=== PATIENT | female | born 1990 | race Caucasian/White ===

== ENCOUNTER 2018-10-29 19:22 | Emergency (ER) | payer SELFPAY ==
[2018-10-29] MEDS ORDERED: CLINDAMYCIN 150 MG CAPSULE PO STA (19:38)
[2018-10-29] MEDS ORDERED: BUFFERED LIDOCAINE 10 ML SYRINGE SUBQ STA (19:38)
--- NOTE | 2018-10-29 19:42 | ED Physician Documentation ---
PD HPI WOUND RECHECK - Stated complaint Stated Complaint: FACIAL PX - Chief complaint Chief Complaint: Wound - Histroy obtained from History obtained from: Patient - History of Present Illness Location: Face (She had what she thought was a pimple on the left side of the chin that slowly grew over a week and over the last 2 days has become increasingly painful and she has had some chills. She tried to drain it last night with a needle but really did not get much out.) Review of Systems Ten Systems: 10 systems reviewed and negative Constitutional: reports: Chills. denies: Fever Cardiac: denies: Chest pain / pressure, Palpitations Respiratory: denies: Dyspnea, Cough PD PAST MEDICAL HISTORY - Past Medical History Past Medical History: No - Past Surgical History General: Cholecystectomy HEENT: Tonsil/Adenoidectomy - Present Medications Home Medications: Ambulatory Orders Medication Instructions Recorded Confirmed Clindamycin HCl [Clindamycin 300MG 300 mg PO Q6H #40 capsule 10/29/18 CAP] Hydrocodone/Acetaminophen 1 - 2 each PO Q6H PRN #7 tablet 10/29/18 [Hydrocodon-Acetaminophen 5-325] - Allergies Allergies/Adverse Reactions: Allergies Allergy/AdvReac Type Severity Reaction Status Date / Time Penicillins Allergy Unknown Verified 10/29/18 19:29 - Social History Does the pt smoke?: Yes Smoking Status: Current every day smoker Does the pt drink ETOH?: No Does the pt have substance abuse?: No - Immunizations Immunizations are current?: Yes PD ED PE NORMAL - Vitals Vital signs reviewed: Yes - General General: Alert and oriented X 3, No acute distress - HEENT HEENT: Other (Just to the left of the midline on the chin there is a pointed abscess that spreads across the midline with mild overlying cellulitis) - Neck Neck: Supple, no meningeal sign, No bony TTP - Derm Derm: No rash - Neuro Neuro: Alert and oriented X 3, Normal speech Results - Vitals Vitals: Vital Signs - 24 hr 10/29/18 19:25 Temperature 36.2 C L Heart Rate 134 H Respiratory 18 Rate Blood Pressure 147/99 H O2 Saturation 100 Oxygen O2 Source Room air Procedures - Abscess I&D (location) Chin Preparation: Chlorhexadine, Lidocaine 1% (buffered) Incision: Incised with scalpel, Purulent drainage, Loculations broken, Packed (with 1/4 inch packing), Culture obtained Other: Pt tolerated well, Dressing applied, Antibiotic prescribed Departure - Departure Disposition: 01 Home, Self Care Clinical Impression: Abscess Condition: Good Record reviewed to determine appropriate education?: Yes Instructions: ED Abscess IandD Prescriptions: Clindamycin HCl [Clindamycin 300MG CAP] 300 mg PO Q6H #40 capsule Hydrocodone/Acetaminophen [Hydrocodon-Acetaminophen 5-325] 1 - 2 each PO Q6H PRN #7 tablet PRN Reason: pain Comments: We are performing a wound culture, the results should be done in 48-72 hours. If antibiotic change is necessary we will call you. Return if worse in the meantime, especially if you develop increased pain, fevers, cannot keep down the medication. Otherwise follow-up with your physician in approximately 2-3 days. Your blood pressure was elevated today on check into the emergency department. This does not mean that you have hypertension, it is a common phenomenon to come to the emergency department and have elevated blood pressure. I recommend that you see your primary care physician within the week to have it rechecked when you are feeling better.
[2018-10-29] MEDS ORDERED: HYDROcod/ACET 5/325 Prepack 4 PO STA (20:02)
[2018-10-29 20:30] VITALS: BP 140/106
== END 2018-10-29 20:30 | disposition home or self-care (01) ==
LOC: ED 19:22
DX: L02.01 Cutaneous abscess of face (principal); L03.211 Cellulitis of face; F17.200 Nicotine dependence, unspecified, uncomplicated; R03.0 Elevated blood-pressure reading, without diagnosis of hypertension
CPT/HCPCS: 10060; 87070; 87205; 99283; A9270; 87181

== ENCOUNTER 2018-12-16 02:52 | Outpatient (CLI) | payer MEDICAID | END 2018-12-16 02:53 | disposition critical access hospital (66) | LOC: EMS 02:52 | PROVIDERS: ATTEND Surgery | DX: R10.9 Unspecified abdominal pain (principal) ==

== ENCOUNTER 2018-12-16 03:11 | Emergency (ER) | payer MEDICAID ==
[2018-12-16] MEDS ORDERED: KETOROLAC 30 MG/ML VIAL IVP STA (03:38)
--- NOTE | 2018-12-16 03:40 | ED Physician Documentation ---
PD HPI ABD PAIN - Stated complaint Stated Complaint: ABD PAIN WITH FEVER, CHILLS - Chief complaint Chief Complaint: Back Pain - History obtained from History obtained from: Patient, EMS - History of Present Illness Timing - onset: How many days ago (3) Timing - duration: Days (3) Timing - details: Gradual onset, Still present Quality: Aching, Sharp, Pain Location: RUQ Radiation: Right flank Improved by: Laying still Worsened by: Position, Palpation Associated symptoms: Fever, Nausea. No: Vomiting, Dysuria Similar symptoms before: Diagnosis (pyelo) Recently seen: Not recently seen - Additional information Additional information: 28-year-old female reports that she has been sick for about 3 days with pain in her right side and she has not had urinary symptoms but she feels that this is similar pain to what she is had previously with a kidney infection. She has had a fever associated with this and some nausea but no vomiting. She has been able to keep food and fluids down. [facility] [place] [facility] [place] [facility] 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 Review of Systems Constitutional: reports: Fever, Chills, Myalgias, Fatigue Eyes: denies: Decreased vision Ears: denies: Ear pain Nose: denies: Rhinorrhea / runny nose, Congestion Throat: denies: Sore throat Cardiac: denies: Chest pain / pressure, Palpitations Respiratory: denies: Dyspnea, Cough GI: reports: Abdominal Pain, Nausea. denies: Constipation, Diarrhea : denies: Dysuria, Frequency Skin: denies: Rash Musculoskeletal: reports: Back pain. denies: Neck pain, Extremity pain Neurologic: denies: Generalized weakness, Focal weakness, Numbness PD PAST MEDICAL HISTORY - Past Surgical History General: Cholecystectomy HEENT: Tonsil/Adenoidectomy - Present Medications Home Medications: Ambulatory Orders Medication Instructions Recorded Confirmed Clindamycin HCl [Clindamycin 300MG 300 mg PO Q6H #40 capsule 10/29/18 CAP] Hydrocodone/Acetaminophen 1 - 2 each PO Q6H PRN #7 tablet 10/29/18 [Hydrocodon-Acetaminophen 5-325] Hydrocodone/Acetaminophen 1 - 2 each PO Q6H PRN #14 tablet 12/16/18 [Hydrocodon-Acetaminophen 5-325] Sulfamethoxazole/Trimethoprim 1 each PO BID #14 tablet 12/16/18 [Sulfamethoxazole-Tmp Ds Tablet] - Allergies Allergies/Adverse Reactions: Allergies Allergy/AdvReac Type Severity Reaction Status Date / Time Penicillins Allergy Unknown Verified 10/29/18 19:29 - Social History Does the pt smoke?: Yes Smoking Status: Current every day smoker Does the pt drink ETOH?: No Does the pt have substance abuse?: No - Immunizations Immunizations are current?: Yes PD ED PE NORMAL - Vitals Vital signs reviewed: Yes (febrile and tachycardic ) - General General: Alert and oriented X 3, No acute distress, Well developed/nourished - HEENT HEENT: Atraumatic, PERRL, EOMI - Neck Neck: Supple, no meningeal sign, No bony TTP - Cardiac Cardiac: RRR, No murmur - Respiratory Respiratory: No respiratory distress, Clear bilaterally - Abdomen Abdomen: Soft, Other (RUQ tenderness to bimanual palpation of the right kidney) - Back Back: No spinal TTP, Other (right CVA tenderness ) - Derm Derm: Normal color, Warm and dry, No rash - Extremities Extremities: No deformity, No edema - Neuro Neuro: Alert and oriented X 3, supervisor pumping station 2-12 intact, No motor deficit, No sensory deficit, Normal speech Eye Opening: Spontaneous Motor: Obeys Commands Verbal: Oriented GCS Score: 15 - Psych Psych: Normal mood, Normal affect Results - Vitals Vitals: Vital Signs - 24 hr 12/16/18 03:14 Temperature 38.1 C H Heart Rate 137 H Respiratory 18 Rate Blood Pressure 113/76 O2 Saturation 98 Oxygen O2 Source Room air - Labs Labs: Laboratory Tests 12/16/18 12/16/18 12/16/18 03:30 03:30 03:30 Urine Color YELLOW Urine Clarity SL. CLOUDY Urine pH 6.5 Ur Specific [place] 1.020 1.020 Urine Protein 30 H Urine Glucose (UA) NEGATIVE Urine Ketones TRACE Urine Occult Blood TRACE-INTA Urine Nitrite POSITIVE H Urine Bilirubin NEGATIVE Urine Urobilinogen 0.2 (NORMAL) Ur Leukocyte Esterase TRACE H Urine RBC 11-25 H Urine WBC >25 H Ur Squamous Epith Cells MANY Squamous H Urine Bacteria Many H Ur Microscopic Review INDICATED Urine Culture Comments NOT INDICATED Urine HCG, Qual NEGATIVE Urine Opiates Screen NEGATIVE Ur Oxycodone Screen NEGATIVE Urine Methadone Screen NEGATIVE Ur Propoxyphene Screen NEGATIVE Ur Barbiturates Screen NEGATIVE Ur Tricyclics Screen NEGATIVE Ur Phencyclidine Scrn NEGATIVE Ur Amphetamine Screen POSITIVE H U Methamphetamines Scrn POSITIVE H U Benzodiazepines Scrn NEGATIVE Urine Cocaine Screen NEGATIVE U Cannabinoids Screen NEGATIVE Procedures - Bedside sono Bedside sono by EMP: With use of bedside ultrasound the right kidney is imaged there is no evidence of hydronephrosis the kidney is sonographically specifically tender. - IVC sono (time) 0330 Bedside IVC sono: IVC measures (cm) (1.54), Euvolemia PD MEDICAL DECISION MAKING - ED course Complexity details: reviewed results, re-evaluated patient, considered differential, d/w patient ED course: 28-year-old female with 3 days of right flank pain and nausea has evidence of infection by microscopic analysis of the urine and she has flank pain and tenderness to the right kidney on sonographic palpation. She is diagnosed with pyelonephritis she is administered Toradol 30 mg intravenously and Rocephin 1 g intravenously. She is not dehydrated. She is administered a liter of saline as well. Departure - Departure Disposition: 01 Home, Self Care Clinical Impression: Pyelonephritis Condition: Stable Instructions: ED Kidney Infec Female Follow-Up: [facility] [Provider Group] Prescriptions: Hydrocodone/Acetaminophen [Hydrocodon-Acetaminophen 5-325] 1 - 2 each PO Q6H PRN #14 tablet PRN Reason: pain Sulfamethoxazole/Trimethoprim [Sulfamethoxazole-Tmp Ds Tablet] 1 each PO BID #14 tablet
[2018-12-16 03:49] LABS: MUDS CUTOFF CONCENTRATIONS CUTOFF CONC BELOW:
[2018-12-16 03:58] LABS: BILIRUBIN,URINE NEGATIVE (NEGATIVE); GLUCOSE, URINE (UA) NEGATIVE (NEGATIVE); KETONES,URINE (UA) TRACE mg/dL (NEGATIVE); LEUKOCYTE ESTERASE, URINE TRACE (NEGATIVE); NITRITE,URINE POSITIVE (NEGATIVE); OCCULT BLOOD,URINE TRACE-INTA (NEGATIVE); PH,URINE 6.5 PH (5.0-7.5); PROTEIN,URINE 30 mg/dL (NEGATIVE); UROBILINOGEN,URINE 0.2 (NORMAL) E.U./dL (NORMAL)
[2018-12-16 04:14] LABS: BACTERIA,URINE Many /HPF (None Seen); CLARITY,URINE SL. CLOUDY (CLEAR); SQUAMOUS EPITHELIAL CELL,UR MANY Squamous (<= Few)
[2018-12-16 04:15] LABS: AMPHETAMINE SCREEN,URINE POSITIVE (NEGATIVE); BENZODIAZEPINES SCREEN, URINE NEGATIVE (NEGATIVE); COCAINE SCREEN URINE NEGATIVE (NEGATIVE); METHADONE SCREEN, URINE NEGATIVE (NEGATIVE); METHAMPHETAMINES SCREEN, URINE POSITIVE (NEGATIVE); OPIATE SCREEN, URINE NEGATIVE (NEGATIVE); OXYCODONE SCREEN, URINE NEGATIVE (NEGATIVE); PROPOXYPHENE SCREEN, URINE NEGATIVE (NEGATIVE); TRICYCLIC ANTIDEPRESSANT,URINE NEGATIVE (NEGATIVE)
[2018-12-16 04:16] LABS: HCG UR QUAL NEGATIVE
[2018-12-16] MEDS ORDERED: cefTRIAXone 1 GM in SODIUM CHLORIDE 0.9% MINIBAG 100 ML IV STA (04:19)
[2018-12-16] MEDS ORDERED: SODIUM CHLORIDE 0.9% 1,000 ML IV ONE (04:21)
[2018-12-16 05:43] VITALS: BP 109/62
== END 2018-12-16 05:44 | disposition home or self-care (01) ==
LOC: EDUNIT# → ED 03:11
DX: N12 Tubulo-interstitial nephritis, not specified as acute or chronic (principal); F17.200 Nicotine dependence, unspecified, uncomplicated
CPT/HCPCS: 80306; 81001; 81003; 81025; 87086; 96365; 96375; 99283

== ENCOUNTER 2020-06-03 00:16 | Inpatient (IN) | payer MEDICAID ==
[2020-06-03 01:04] LABS: BASOPHILS # (AUTO) 0.1 10^3/uL (0.0-0.1); BASOPHILS % (AUTO) 0.3 %; EOSINOPHILS # (AUTO) 0.1 10^3/uL (0.0-0.7); EOSINOPHILS % (AUTO) 0.8 %; LYMPHOCYTES # (AUTO) 3.3 10^3/uL (1.5-3.5); LYMPHOCYTES % (AUTO) 21.3 %; MEAN CORPUSCULAR HEMOGLOBIN 26.2 pg (27.0-31.0); MEAN CORPUSCULAR HGB CONC 32.3 g/dL (32.0-36.0); MEAN CORPUSCULAR VOLUME 81.2 fL (81.0-99.0); MEAN PLATELET VOLUME 11.2 fL (7.9-10.8); MONOCYTES # (AUTO) 1.1 10^3/uL (0.0-1.0); MONOCYTES % (AUTO) 7.4 %; NEUTROPHILS # (AUTO) 10.6 10^3/uL (1.5-6.6); PLT - PLATELET COUNT 376 10^3/uL (130-450); RED CELL DISTRIBUTION WIDTH 15.6 % (12.0-15.0); WHITE BLOOD COUNT 15.3 x10^3/uL (4.8-10.8)
[2020-06-03] MEDS ORDERED: METHYLERGONOVINE 0.2 MG/ML VIAL IM PRN (01:05)
[2020-06-03] MEDS ORDERED: LIDOCAINE-MPF 1% 30 ML VIAL ID PRN (01:05)
[2020-06-03] MEDS ORDERED: OXYTOCIN/SODIUM CHLORIDE 500 ML IV PRN (01:05)
[2020-06-03] MEDS ORDERED: TRANEXAMIC ACID 1,000 MG in SODIUM CHLORIDE 0.9% 100ML 100 ML IV PRN (01:05)
[2020-06-03] MEDS ORDERED: SODIUM CHLORIDE FLUSH 0.9% 10 ML SYRINGE IVP PRN (01:05)
[2020-06-03] MEDS ORDERED: OXYTOCIN 10 UNIT/ML VIAL IM PRN (01:05)
[2020-06-03] MEDS ORDERED: miSOPROStoL 200 MCG TABLET BC PRN (01:05)
[2020-06-03] MEDS ORDERED: CARBOPROST TROMETHAMINE 250 MCG/ML AMP IM PRN (01:05)
[2020-06-03] MEDS ORDERED: ONDANSETRON 4 MG/2 ML VIAL IVP PRN (01:41)
[2020-06-03] MEDS ORDERED: DOCUSATE SODIUM 100 MG CAPSULE PO PRN (01:48)
--- NOTE | 2020-06-03 01:54 | HISTORY & PHYSICAL EXAMINATION ---
Admit History - Visit Reason Visit Reason: Contractions - : 5 Parity: 4 Care: positive: Other Risk/History: positive: induced HTN, Other (methamphetamine use) Smoking Status: Current every day smoker - Mother's Labs Mother's Blood Type: positive: Unknown Mother's RH: positive: Unknown Rubella Status: positive: Unknown - Other Maternal History Other Maternal History: 30 yo reported to be at 37+4 wga presents in active labor. Patient reports that she has gotten her care on [facility]. Has not had care in more than a month. Presented with painful contractions with ini tial SVE was 9/C/0 station. Elevated blood pressures with borderline severe range. Hx of pre-eclampsia in prior . No BAY/vision change/RUQ pain. Patient admits to recent methamphetamine use. No labs are available. GBS unknown. Denies hx of genital herpes. Reports hx of hemorrhage/hematoma after last delivery. records are not available. Meds/Allgy - Home Medications Home Medications: Ambulatory Orders Medication Instructions Recorded Confirmed Clindamycin HCl [Clindamycin 300MG 300 mg PO Q6H #40 capsule 10/29/18 CAP] Hydrocodone/Acetaminophen 1 - 2 each PO Q6H PRN #7 tablet 10/29/18 [Hydrocodon-Acetaminophen 5-325] Hydrocodone/Acetaminophen 1 - 2 each PO Q6H PRN #14 tablet 12/16/18 [Hydrocodon-Acetaminophen 5-325] Sulfamethoxazole/Trimethoprim 1 each PO BID #14 tablet 12/16/18 [Sulfamethoxazole-Tmp Ds Tablet] - Allergies Allergies/Adverse Reactions: Allergies Allergy/AdvReac Type Severity Reaction Status Date / Time Penicillins Allergy Unknown Verified 10/29/18 19:29 Review of Systems - Other Findings Other Findings: As per HPI, otherwise remaining systems are negative. Physical - Abdominal Exam Vital Signs: Temp Pulse Resp BP Pulse Ox 97.9 F 105 H 22 147/96 H 98 06/03/20 00:45 06/03/20 01:03 06/03/20 01:03 06/03/20 01:03 06/03/20 00:45 Contraction Frequency (min/apart): Unable to get patient on monitor. Appears Q2 min Contraction Intensity: positive: Strong - Monitoring Heart Rate Baseline: 155 mild/mod kenneth 10x10 accels no decels Strip Review: positive: Category I - Presentation Presentation: positive: Vertex - Vaginal Exam Membranes: positive: Membranes ruptured Dilation (in cm): 9 Effacement (%): C Station: positive: 0 Cervical Position: positive: Midposition - Other Notes Labor Progress Note/Additional Text: Patient ruptures shortly after presentation. Thick meconium. Precipitous delivery GEN: Moderate distress, somewhat disheveled HEENT NCAT RESP: nl effort CV: mildly tachycardic ABD: gravid, soft between contractions PELVIC: gaping introitus c/w prior unrepaired laceration EXT: WWP, no LE edema PSYCH: mildly agitated NEURO: A&O Plan for Labor - Plan For Labor Plan for Labor: 30 yo at 37+4 wga presents in late state labor No records available No care for the last month Denies HSV GBS unknown Admits methamphetamine exposure SROM with thick meconium Precipitous delivery In-patient care
[2020-06-03] MEDS ORDERED: LACTATED RINGERS 1,000 ML IV SCH ×2 (02:00)
--- NOTE | 2020-06-03 02:17 | DELIVERY NOTE ---
Delivery Note - Labor Labor: positive: Spontaneous - Delivery Method Delivery Method: positive: Spontaneous vaginal delivery - Presentation Presentation: positive: Vertex - Nuchal Cord Nuchal Cord: positive: None - Amniotic Fluid Description Amniotic Fluid Description: positive: Thick meconium - Laceration Laceration: positive: None - Delivery Outcome Delivery Outcome: positive: Livebirth - : positive: Placed in direct skin contact with mother, Other ( in respiratory distress. Went to [facility] for assessment by Institutional Commodity Analyst. Delee'd and PPV) - Cord Cord: positive: 3 vessels - Placenta Placenta: positive: Intact, Spontaneous - Estimated Blood Loss Estimated Blood Loss (in cc): 200 - Post Delivery Events Post Delivery Events: positive: No post delivery events - Delivery Comments (Free Text/Narrative) Delivery Comments (Free Text/Narrative): STAGE I: Patient is a 30 yo at 37+4 wga, per patient report, who presented in active labor. No records available. No care for the last month. Admits to recent methamphetamine use. Initial SVE was 9/C/0 station. Spontaneously ruptured membranes notable for passage of thick meconium shortly after presentation. Had less than 20 mins of monitoring. No epidural . No antibiotic prophylaxis. STAGE II: Patient started pushing involuntarily shortly after membrane rupture. Head was delivered and then patient became disorganized in pushing due to discomfort/panic. She was verbally calmed and was then able to deliver the shoulders without shoulder dystocia maneuvers. Delivered a viable female with Apgars of 8/8 and weight 3380g at 1:11 am. was delivered to mothers chest. No nuchal cord. She was then brought to the [facility] for assessment with the electrician's assistant due to respiratory distress. Infant is in the process of transfer to [facility] for NICU assistance. STAGE III: Placenta delivered spontaneously shortly after delivery the infant. It was examined and found to be intact. Perineum was examined and found to be intact, although laxity/structure of the introitus and perineal body had the appearance of a laceration that may have gone unrepaired in a prior delivery. EBL was 200 mL. Good hemostasis was noted. Placenta to be sent to pathology.
[2020-06-03] MEDS: ACETAMINOPHEN 500 MG TABLET PO SCH ×3 (02:20→20:02)
[2020-06-03 02:29] LABS: BASOPHILS # (AUTO) 0.1 10^3/uL (0.0-0.1); BASOPHILS % (AUTO) 0.4 %; EOSINOPHILS # (AUTO) 0.1 10^3/uL (0.0-0.7); EOSINOPHILS % (AUTO) 0.7 %; HGB - HEMOGLOBIN 10.6 g/dL (12.0-16.0); LYMPHOCYTES # (AUTO) 2.5 10^3/uL (1.5-3.5); MEAN CORPUSCULAR HEMOGLOBIN 25.7 pg (27.0-31.0); MEAN CORPUSCULAR HGB CONC 31.1 g/dL (32.0-36.0); MEAN CORPUSCULAR VOLUME 82.8 fL (81.0-99.0); MEAN PLATELET VOLUME 10.7 fL (7.9-10.8); MONOCYTES # (AUTO) 0.9 10^3/uL (0.0-1.0); MONOCYTES % (AUTO) 6.4 %; NEUTROPHILS # (AUTO) 10.3 10^3/uL (1.5-6.6); NEUTROPHILS % (AUTO) 73.4 %; PLT - PLATELET COUNT 342 10^3/uL (130-450); RED BLOOD COUNT 4.12 10^6/uL (4.20-5.40); RED CELL DISTRIBUTION WIDTH 15.5 % (12.0-15.0)
[2020-06-03] MEDS ORDERED: DEXTROSE 10% 250 ML IV ONE (02:39)
[2020-06-03 02:43] LABS: CREATININE 0.6 mg/dL (0.4-1.0)
[2020-06-03] MEDS ORDERED: SODIUM CHLORIDE FLUSH 0.9% 10 ML SYRINGE IVP SCH (09:00)
[2020-06-03] MEDS: IBUPROFEN 600 MG TABLET PO SCH ×3 (11:37→23:26)
[2020-06-03 15:35] LABS: MUDS CUTOFF CONCENTRATIONS CUTOFF CONC BELOW:
[2020-06-03 15:51] LABS: AMPHETAMINE SCREEN,URINE POSITIVE (NEGATIVE); BENZODIAZEPINES SCREEN, URINE NEGATIVE (NEGATIVE); COCAINE SCREEN URINE NEGATIVE (NEGATIVE); METHADONE SCREEN, URINE NEGATIVE (NEGATIVE); METHAMPHETAMINES SCREEN, URINE POSITIVE (NEGATIVE); OPIATE SCREEN, URINE NEGATIVE (NEGATIVE); OXYCODONE SCREEN, URINE NEGATIVE (NEGATIVE); PROPOXYPHENE SCREEN, URINE NEGATIVE (NEGATIVE); TRICYCLIC ANTIDEPRESSANT,URINE NEGATIVE (NEGATIVE)
[2020-06-03 22:26] LABS: TRICHOMONAS VAGINALIS DNA POSITIVE (NEGATIVE)
[2020-06-04] MEDS: ACETAMINOPHEN 500 MG TABLET PO SCH (04:03)
[2020-06-04] MEDS: IBUPROFEN 600 MG TABLET PO SCH (05:35)
[2020-06-04 08:03] VITALS: BP 141/85
--- NOTE | 2020-06-04 08:07 | DISCHARGE SUMMARY ---
Discharge Summary Admit Date: 06/03/20 Discharge Date: 06/04/20 Discharging Provider: Ana Code Status: Attempt Resuscitation Condition at Discharge: Good Discharge Disposition: 01 Home, Self Care Discharge Facility Name: [facility] - DIAGNOSES Admission Diagnoses: Labor at term/unknown gestation Methamphetamine use Scant/absent care Discharge Diagnoses with Status of Each Condition: Same and delivery of term gestation - HPI History of Present Illness: 30 yo reported to be at 37+4 wga presents in active labor. Patient initially reported that she has gotten her care in [facility]/[place]. Has not had care in more than a month. Presented with painful contractions with initial SVE was 9/C/0 station. Elevated blood pressures with borderline severe range. Hx of pre-eclampsia in prior . No BAY/vision change/RUQ pain. Patient admitted to recent methamphetamine use. No labs are available. GBS unknown. Further into admission, patient reports care was not well established. - HOSPITAL COURSE Hospital Course: STAGE I: Patient is a 30 yo at 37+4 wga, per patient report, who presented in active labor. No records available. No care for the last month. Admits to recent methamphetamine use. Initial SVE was 9/C/0 station. Spontaneously ruptured membranes notable for passage of thick meconium shortly after presentation. Had less than 20 mins of monitoring. No epidural . No antibiotic prophylaxis. STAGE II: Patient started pushing involuntarily shortly after membrane rupture. Head was delivered and then patient became disorganized in pushing due to d iscomfort/panic. She was verbally calmed and was then able to deliver the shoulders without shoulder dystocia maneuvers. Delivered a viable female with Apgars of 8/8 and weight 3380g at 1:11 am. Infant was delivered to mothers chest. No nuchal cord. She was then brought to the [facility] for assessment with the cotton expert due to respiratory distress. Infant is in the process of transfer to [facility] for NICU assistance. STAGE III: Placenta delivered spontaneously shortly after delivery the infant. It was examined and found to be intact. Perineum was examined and found to be intact, although laxity/structure of the introitus and perineal body had the appearance of a laceration that may have gone unrepaired in a prior delivery. EBL was 200 mL. Good hemostasis was noted. Placenta sent to pathology. Infant had been transferred to [facility] for NICU support immediately . course was uncomplicated. Patient was discharged on PPD#1. O pos/Rub imm - ALLERGIES Allergies/Adverse Reactions: Allergies Allergy/AdvReac Type Severity Reaction Status Date / Time Penicillins Allergy Unknown Verified 10/29/18 19:29 - MEDICATIONS Home Medications: Ambulatory Orders Medication Instructions Recorded Confirmed Clindamycin HCl [Clindamycin 300MG 300 mg PO Q6H #40 capsule 10/29/18 CAP] Hydrocodone/Acetaminophen 1 - 2 each PO Q6H PRN #7 tablet 10/29/18 [Hydrocodon-Acetaminophen 5-325] Hydrocodone/Acetaminophen 1 - 2 each PO Q6H PRN #14 tablet 12/16/18 [Hydrocodon-Acetaminophen 5-325] Sulfamethoxazole/Trimethoprim 1 each PO BID #14 tablet 12/16/18 [Sulfamethoxazole-Tmp Ds Tablet] - PHYSICAL EXAM AT DISCHARGE General Appearance: positive: No acute distress Respiratory: positive: No respiratory distress, Breath sounds nml Cardiovascular: positive: Regular rate & rhythm Abdomen: positive: Non-tender, Other (FF below umbi) Back: positive: Nml inspection Skin: positive: Color nml Extremities: positive: Non-tender Neurologic/Psychiatric: positive: Oriented x3 - LABS Result Diagrams: 06/03/20 02:20 06/03/20 02:20 - FOLLOW UP Follow Up: 1 week - TIME SPENT Time Spent in Discharge (Minutes): 30
--- NOTE | 2020-06-04 11:18 | Labor Flowsheet ---
Labor Flowsheet Datetime Report Generated by CPN: 06/04/2020 11:17 Datetime: 06/03/2020 04:00 Pulse: 100 LaborFlag: Labor Datetime: 06/03/2020 03:57 VITAL SIGNS NBP Sys/Marifer/Mean (mmHg): 142 : 84 : 99 Datetime: 06/03/2020 01:10 VAGINAL EXAM Membrane Status: Ruptured Membranes Rupture Method: Spontaneous Amniotic Fluid Color: Heavy Meconium Amniotic Fluid Amount: Moderate Amniotic Fluid Odor: Normal STAGE 2 Pushing Position: Pushing with Contractions Pushing Progress: Pushing Effectively with Contractions Stage 2 Comments: pt losing control due to rapid descent, intense coaching needed by MD Datetime: 06/03/2020 01:02 FHR Baseline Rate : 145 Variability: Moderate 6-25 bpm Accelerations: 15X15 Decelerations: None Datetime: 06/03/2020 00:57 PATIENT CARE Strip Reviewed by: Dr. McSorley COMMUNICATION Communication: Provider at Bedside Datetime: 06/03/2020 00:45 Respirations: 20 SpO2 (%): 99 Datetime: 06/03/2020 00:44 Stage of : Labor UTERINE ACTIVITY Monitor Mode: External Frequency (min): 2-3 Quality: Strong Duration (sec): 60-90 Pattern: Normal: <= 5 Contractions in 10 Minutes Resting Tone (Palpate): Relaxed Contraction Comments: pt being prepped to deliver, sensor not placed ASSESSMENT A Monitor Mode: External US Category: Category I
[2020-06-04 13:19] LABS: HEPATITIS B SURFACE ANTIGEN NON-REACTIVE (NON-REACTIVE)
[2020-06-04 15:03] LABS: HIV AG/AB 4TH GEN NON-REACTIVE (NON-REACTIVE)
--- NOTE | 2020-06-06 11:07 | PROVIDER PROGRESS NOTE ---
Subjective - Prog Note Date Prog Note Date: 06/04/20 Prog Note Time: 10:30 - Subjective Subjective: Patient is up and ambulating, tolerating po, and voiding. Pain is well managed with pain medications. No agitation. Requesting discharged to be with infant at [facility]. Objective - Vital Signs/Intake & Output Reviewed Vital Signs: Yes Intake & Output: Intake & Output 06/03/20 06/04/20 06/05/20 06/06/20 23:59 23:59 23:59 23:59 Intake Total 700 Output Total 400 Balance 300 - Objective General Appearance: positive: No acute distress Neck: positive: Nml inspection Respiratory: positive: Chest non-tender, Breath sounds nml Cardiovascular: positive: Regular rate & rhythm Abdomen: positive: Non-tender, Other (FF below umbi) Skin: positive: Color nml - Lab Results Fish Bones: 06/03/20 02:20 06/03/20 02:20 Assessment/Plan - Problem List (1) Vaginal delivery Impression: PPD#1: Patient anxious for discharge to be with infant in NICU Pending CPS eval Mildly elevated BP; denies PIH symptoms Will have BPs checked at [facility] Discharge instructions given Will return for follow-up at [facility] or may establish care at [facility] in infant is put in custody of her sister in [place]. Aware that she needs follow-up of BPs. Warning signs reviewed. RH positive and Rub imm
== END 2020-06-04 11:00 | disposition home or self-care (01) | DRG 807 ==
LOC: WFO 00:16 → FBP 00:17 → WFO 00:34 → UNDOADMIN 00:35 → FBP 00:35 → OBS 05:52
PROVIDERS: ADMIT Obstetrics & Gynecology; ATTEND Obstetrics & Gynecology
PROC: 10E0XZZ Delivery of Products of Conception, External Approach (ICD-10-PCS; principal; 2020-06-03)
DX: O13.4 Gestational [pregnancy-induced] hypertension without significant proteinuria, complicating childbirth (principal); Z37.0 Single live birth; O99.324 Drug use complicating childbirth; F15.90 Other stimulant use, unspecified, uncomplicated; O99.334 Smoking (tobacco) complicating childbirth; F17.200 Nicotine dependence, unspecified, uncomplicated; O77.0 Labor and delivery complicated by meconium in amniotic fluid; O62.3 Precipitate labor; Z3A.37 37 weeks gestation of pregnancy; Z87.59 Personal history of other complications of pregnancy, childbirth and the puerperium
CPT/HCPCS: 80306; 82565; 84450; 85025; 86762; 86780; 86900; 86901; 87340; 87389; 87491; 87591; 87661; 99212; 99406; A9270; J3490; J7120

== ENCOUNTER 2021-11-30 04:33 | Emergency (ER) | payer MEDICAID ==
[2021-11-30] MEDS ORDERED: KETOROLAC 30 MG/ML VIAL IM STA (04:56)
[2021-11-30] MEDS ORDERED: ACETAMINOPHEN 325 MG TABLET PO STA (04:56)
--- NOTE | 2021-11-30 04:58 | ED Physician Documentation ---
PD HPI Fall - Stated complaint Stated Complaint: GLF, FACE/NECK PX - History obtained from History obtained from: Patient - History of Present Illness Mechanism of injury: Lost balance Fall distance: From bed (she was getting into a loft-type bed that swings and she fell as mostly into it, landing left face/shoulder initial impact. Has pain in face and left side of neck, also some headache. Left shoulder pain. Came here by friend driving.) Where injury occurred: Home Timing - onset: How many hours ago (1), Today Injury(ies) location: Face (left periorbital and cheek area.), Neck (left anterior), Left Uppper Extremity (shoulder) Associated symptoms: Neck pain. No: LOC, AMS, Weakness, Paresthesias, Nausea / vomiting Worsens with: Movement (of her jaw and facial muscles.), Palpation Contributing factors: No: Anticoagulated, Intoxicated (denies alcohol use, but does endorse meth use last evening.) Similar symptoms before: Has not had sx before Review of Systems Constitutional: denies: Fever, Chills Nose: denies: Rhinorrhea / runny nose, Congestion Throat: denies: Sore throat Cardiac: denies: Chest pain / pressure Respiratory: denies: Cough GI: denies: Abdominal Pain Skin: denies: Abrasion (s), Laceration (s) Musculoskeletal: reports: Neck pain. denies: Back pain Neurologic: reports: Headache, Head injury. denies: Focal weakness, Numbness, Altered mental status PD PAST MEDICAL HISTORY - Past Medical History Cardiovascular: None Respiratory: None Endocrine/Autoimmune: None - Past Surgical History General: Cholecystectomy HEENT: Tonsil/Adenoidectomy - Present Medications Home Medications: Ambulatory Orders Medication Instructions Recorded Confirmed No Known Home Medications 11/30/21 11/30/21 - Allergies Allergies/Adverse Reactions: Allergies Allergy/AdvReac Type Severity Reaction Status Date / Time Penicillins Allergy Unknown Verified 11/30/21 05:02 - Living Situation Living Arrangement: reports: At home - Social History Does the pt smoke?: Yes Smoking Status: Current every day smoker Does the pt drink ETOH?: No Does the pt have substance abuse?: Yes Substance Use and Type: Meth - Immunizations Immunizations are current?: Yes PD ED PE NORMAL - Vitals Vital signs reviewed: Yes - General General: Alert and oriented X 3, Well developed/nourished, Other (appears in pain with frozen vegetables held to left face. Ambulated into triage. ) - HEENT HEENT: PERRL, EOMI, Dentition benign, Other (some soft tissue swelling left cheek and lower eyelid. No pain with eye movement. ) - Neck Neck: Supple, no meningeal sign, No bony TTP (she is tender left side of neck in the SCM muscle area. No noted deformity. ) - Cardiac Cardiac: RRR, No murmur - Respiratory Respiratory: Clear bilaterally, Other (no chestwall tenderness. ) - Abdomen Abdomen: Soft, Non tender - Back Back: No spinal TTP - Derm Derm: Normal color, Warm and dry - Extremities Extremities: No edema - Neuro Neuro: Alert and oriented X 3, No motor deficit, No sensory deficit, Normal speech Results - Vitals Vitals: Vital Signs - 24 hr 11/30/21 11/30/21 11/30/21 04:43 05:08 05:43 Temperature 36.1 C L Heart Rate 103 H 100 99 Respiratory 18 14 18 Rate Blood Pressure 144/97 H 139/86 H 145/95 H O2 Saturation 100 100 99 Oxygen O2 Source Room air - Rads (name of study) head CT Radiology: Prelim report reviewed (no bleed nor fractures), See rad report cervical CT Radiology: Prelim report reviewed (no fractures), See rad report facial CT Radiology: Prelim report reviewed (no fractures. ), See rad report PD MEDICAL DECISION MAKING - ED course Complexity details: reviewed old records, reviewed results (no fractures nor ICH. ), considered differential, d/w patient Departure - Departure Clinical Impression: Fall from height of greater than 3 feet Shoulder contusion Qualifiers: Encounter type: initial encounter Laterality: left Qualified Code(s): S40.012A - Contusion of left shoulder, initial encounter Facial contusion Qualifiers: Encounter type: initial encounter Qualified Code(s): S00.83XA - Contusion of other part of head, initial encounter Acute strain of neck muscle Qualifiers: Encounter type: initial encounter Qualified Code(s): S16.1XXA - Strain of muscle, fascia and tendon at neck level, initial encounter Condition: Stable Record reviewed to determine appropriate education?: Yes Instructions: ED Contusion Face Comments: CT scans of your head face and neck do not show any signs of fractures nor intracranial bleeding. X-ray of your shoulder is normal as well. You will obviously still be sore from the impact of the fall but it should get better over the next couple of days with ice to the area to reduce swelling and use of anti-inflammatories such as ibuprofen or naproxen 3 times daily and add Tylenol if needed. Stay well-hydrated. Recheck if not improved well over the next several days.
[2021-11-30 06:47] VITALS: BP 137/78
--- NOTE | 2021-11-30 07:56 | CT Report ---
PROCEDURE: MAXILLOFACIAL WO INDICATIONS: fall onto face; face/head/neck pain TECHNIQUE: Noncontrast 1.5 mm thick axial images acquired from the mandible through the frontal sinuses, with co hitesh and sagittal reformatting. For radiation dose reduction, the following was used: automated ex posure control, adjustment of mA and/or kV according to patient size. COMPARISON: None. FINDINGS: Image quality: Excellent. Bones and teeth: Orbital evangelista are intact. Sinus evangelista show no fracture or deformity. Nasal bones and septum are intact. Visualized portions of the mandible demonstrate no fractures or subluxation. Zygomatic arches are intact. Pterygoid plates are intact. Visualized portions of the skull base an d auditory canals are intact. Multiple dental caries noted. Sinuses: Mild mucosal thickening noted in the left maxillary sinus. Mastoid air cells are aerated. Soft tissues: Left periorbital facial soft tissue swelling. No enlarged lymph nodes. No soft tissue lacerations or debris. Vascular: Visualized vascular structures appear normal in the absence of contrast. Bony vascular fo ramina and canals are intact. IMPRESSION: No fracture. Reviewed by: Lorena Burch MD, PhD on 11/30/2021 7:55 AM PST Approved by: Lorena Burch MD, PhD on 11/30/2021 7:55 AM PST Station ID: [id number]
--- NOTE | 2021-11-30 07:59 | CT Report ---
PROCEDURE: HEAD WO INDICATIONS: fall onto face; face/head/neck pain TECHNIQUE: Noncontrast 4.5 mm thick angled axial sections acquired from the foramen magnum to the vertex. For r adiation dose reduction, the following was used: automated exposure control, adjustment of mA and/or kV according to patient size. COMPARISON: None. FINDINGS: Image quality: Excellent. CSF spaces: Basal cisterns are patent. No extra-axial fluid collections. Ventricles are normal in size and shape. Brain: No midline shift. No intracranial masses or hemorrhage. Quarles-white matter interface is norm al. Skull and face: Calvarium and visualized facial bones are intact, without suspicious lesions. Sinuses: Visualized sinuses and mastoids are clear. IMPRESSION: No acute intracranial disease process. Reviewed by: Lorena Burch MD, PhD on 11/30/2021 7:57 AM PST Approved by: Lorena Burch MD, PhD on 11/30/2021 7:57 AM [facility] Station ID: [id number]
--- NOTE | 2021-11-30 08:00 | XRAY Report ---
PROCEDURE: Shoulder 3 View LT INDICATIONS: fall to left shoulder/face TECHNIQUE: 3 views of the shoulder were acquired. COMPARISON: None. FINDINGS: Bones: No fractures or dislocations. No suspicious bony lesions. Visualized ribs appear intact. Soft tissues: Tiny 2 mm calcification noted distally lateral margin of the humeral head may be relate d to calcific tendinitis. IMPRESSION: No fracture. No osseous lesion. If there are persistent symptoms or continued clinical concern for pa thology, then repeat plain film radiographs (7-10 days) or advanced imaging (CT, MR, bone scan) shoul d be considered for further evaluation. Reviewed by: Lorena Burch MD, PhD on 11/30/2021 7:59 AM [facility] Approved by: Lorena Burch MD, PhD on 11/30/2021 7:59 AM [facility] Station ID: [id number]
--- NOTE | 2021-11-30 08:04 | CT Report ---
PROCEDURE: CERVICAL SPINE WO INDICATIONS: fall onto face; face/head/neck pain TECHNIQUE: Noncontrast 3 mm thick sections acquired from the skull base to the T4 level. Sagittal and coronal r eformats were then constructed. For radiation dose reduction, the following was used: automated exp osure control, adjustment of mA and/or kV according to patient size. COMPARISON: None. FINDINGS: Image quality: Excellent. Bones: No fractures or dislocations. Visualized superior ribs are intact. Mild mid cervical spine d egenerative disc disease. Mild lower cervical spine facet arthropathy. Soft tissues: Prevertebral soft tissues are normal in thickness. No paravertebral hematomas. No ap ical pneumothoraces. IMPRESSION: No fracture. No acute osseous lesion. If there is continued clinical concern for pathology, then MRI should be considered for further evaluation. Reviewed by: Lorena Burch MD, PhD on 11/30/2021 8:03 AM PST Approved by: Lorena Burch MD, PhD on 11/30/2021 8:03 AM PST Station ID: [id number]
== END 2021-11-30 06:47 | disposition home or self-care (01) ==
LOC: ED 04:33
DX: S40.012A Contusion of left shoulder, initial encounter (principal); S00.83XA Contusion of other part of head, initial encounter; S16.1XXA Strain of muscle, fascia and tendon at neck level, initial encounter; W17.89XA Other fall from one level to another, initial encounter; Y93.89 Activity, other specified; Y92.009 Unspecified place in unspecified non-institutional (private) residence as the place of occurrence of the external cause; F17.200 Nicotine dependence, unspecified, uncomplicated
CPT/HCPCS: 70450; 70486; 72125; 73030; 96372; 99282; 99284; A9270

== ENCOUNTER 2022-08-10 21:12 | Outpatient (CLI) | payer MEDICAID | END 2022-08-10 21:13 | disposition EMS.NT | LOC: EMS 21:12 | DX: R00.0 Tachycardia, unspecified (principal) ==

== ENCOUNTER 2022-08-12 02:52 | Outpatient (CLI) | payer MEDICAID | END 2022-08-12 02:53 | disposition critical access hospital (66) | LOC: EMS 02:52 | DX: R10.11 Right upper quadrant pain (principal) | CPT/HCPCS: A0425; A0429; A0999 ==

== ENCOUNTER 2022-08-12 03:12 | Emergency (ER) | payer MEDICAID ==
--- NOTE | 2022-08-12 03:12 | ED Physician Documentation ---
PD HPI ABD PAIN - Stated complaint Stated Complaint: RT SIDE LIVER PX - History obtained from History obtained from: Patient, EMS - History of Present Illness Timing - onset: How many weeks ago (2-3 weeks) Timing - details: Waxing and waning Pain level now: 5 Quality: Pain Location: RUQ Radiation: Right flank Improved by: Other (no ameliorating factors) Worsened by: Palpation Associated symptoms: Nausea, Vomiting. No: Diarrhea, Constipation, Dysuria Recently seen: Admitted - Additional information Additional information: BIBA. Patient called 911 with c/o abdominal pain, RUQ radiating around right flank to right paralumbar region. She says she has had this pain episodically over past 2-3 weeks. Patient says she was admitted to [facility] 08/01 and was inpatient there until 2 days ago when she left [place]. Patient says there was some abnormality regarding her liver tests but that the cause was unclear. Patient says she was negative for hepatitis B but that a hepatitis C test was pending when she left. Patient admits to using methamphetamines tonight which she smokes. She denies any other drug use, denies IV drug use, denies alcohol use (denies recent alco hol intake and denies h/o heavy/regular alcohol use). Denies excessive tylenol use. Review of Systems Constitutional: denies: Fever, Chills, Sweats Cardiac: reports: Reviewed and negative Respiratory: reports: Reviewed and negative GI: reports: Abdominal Pain, Nausea, Vomiting. denies: Abdominal Swelling, Constipation, Diarrhea, Hematemesis, Bloody / black stool : denies: Dysuria, Frequency Skin: denies: Rash PD PAST MEDICAL HISTORY - Past Medical History Past Medical History: No - Present Medications Home Medications: Ambulatory Orders Medication Instructions Recorded Confirmed No Known Home Medications 08/12/22 08/12/22 - Allergies Allergies/Adverse Reactions: Allergies Allergy/AdvReac Type Severity Reaction Status Date / Time Penicillins Allergy Unknown Verified 08/12/22 03:18 - Living Situation Living Arrangement: reports: Homeless - Social History Does the pt drink ETOH?: No Does the pt have substance abuse?: Yes Substance Use and Type: Meth PD ED PE NORMAL - Vitals Vital signs reviewed: Yes - General General: Alert and oriented X 3, No acute distress, Well developed/nourished, Other (some pressured speech and occasionally tangential but she self-corrects and apologizes for "rambling" (per patient)) - Neck Neck: Supple, no meningeal sign - Cardiac Cardiac: RRR, No murmur - Respiratory Respiratory: No respiratory distress, Clear bilaterally - Abdomen Abdomen: Soft, Non tender - Back Back: No CVA TTP - Extremities Extremities: No edema - Neuro Neuro: Alert and oriented X 3 Eye Opening: Spontaneous Motor: Obeys Commands Verbal: Oriented GCS Score: 15 Results - Vitals Vitals: Vital Signs - 24 hr 08/12/22 03:18 Temperature 36.7 C Heart Rate 99 Respiratory 16 Rate Blood Pressure 118/105 H O2 Saturation 96 Oxygen O2 Source Room air - Labs Labs: Laboratory Tests 08/12/22 08/12/22 03:32 03:32 WBC 14.4 H RBC 4.34 Hgb 11.4 L Hct 35.5 L MCV 81.8 MCH 26.3 L MCHC 32.1 RDW 17.0 H Plt Count 480 H MPV 9.6 Neut # (Auto) 8.4 H Lymph # (Auto) 4.1 H [place] # (Auto) 1.5 H Eos # (Auto) 0.3 Baso # (Auto) 0.1 Absolute Nucleated RBC 0.00 Nucleated RBC % 0.0 Sodium 136 Potassium 3.6 Chloride 101 Carbon Dioxide 24 Anion Gap 11.0 BUN 20 Creatinine 0.7 Estimated GFR (MDRD) 97 Glucose 107 H Calcium 9.1 Total Bilirubin 2.3 H AST 93 H ALT 295 H Alkaline Phosphatase 157 H Total Protein 8.1 Albumin 4.1 Globulin 4.0 Albumin/Globulin Ratio 1.0 Lipase 32 PD MEDICAL DECISION MAKING - ED course Complexity details: reviewed results, re-evaluated patient, considered differential, d/w patient ED course: I explained to patient that I would initiate a work up , starting with blood tests. SPECIALTY THERAPIST contacted [facility] and requested records although I did not receive any records during patient's ED stay. Patient declined pain medication, declined anti-nausea medications. She did not express any disagreement nor dissatisfaction with testing as discussed. I explained that I would reevalulate her once the tests were resulted and hopefully records from [facility] received. Unfortunately, while tests were pending, patient removed her IV, came out to the desk and told the nurse that she had a relative on the way to pick her up and that this person was going to drive patient back down to [facility]. patient left before I was able to reevaluate her. While I did not receive records from [facility], [facility] form reflect two visits on 08/01/22 to [facility] and admission 08/01/22 to [facility]. [facility] also indicates she had another visit to the [facility] ED 08/05/22 but I do not see an indication of admission on that visit. Departure - Departure Disposition: ED [place] Clinical Impression: Abdominal pain Qualifiers: Abdominal location: upper abdomen, unspecified Qualified Code(s): R10.10 - Upper abdominal pain, unspecified Condition: Good Discharge Date/Time: 08/12/22 04:40
[2022-08-12 03:20] VITALS: BP 118/105
[2022-08-12] MEDS ORDERED: SODIUM CHLORIDE 0.9% 1,000 ML IV STA (03:26)
[2022-08-12 03:48] LABS: BASOPHILS # (AUTO) 0.1 10^3/uL (0.0-0.1); BASOPHILS % (AUTO) 0.6 %; EOSINOPHILS # (AUTO) 0.3 10^3/uL (0.0-0.7); EOSINOPHILS % (AUTO) 1.7 %; HCT - HEMATOCRIT 35.5 % (37.0-47.0); HGB - HEMOGLOBIN 11.4 g/dL (12.0-16.0); LYMPHOCYTES # (AUTO) 4.1 10^3/uL (1.5-3.5); LYMPHOCYTES % (AUTO) 28.8 %; MEAN CORPUSCULAR HEMOGLOBIN 26.3 pg (27.0-31.0); MEAN CORPUSCULAR HGB CONC 32.1 g/dL (32.0-36.0); MEAN CORPUSCULAR VOLUME 81.8 fL (81.0-99.0); MEAN PLATELET VOLUME 9.6 fL (7.9-10.8); MONOCYTES # (AUTO) 1.5 10^3/uL (0.0-1.0); MONOCYTES % (AUTO) 10.2 %; NEUTROPHILS # (AUTO) 8.4 10^3/uL (1.5-6.6); NEUTROPHILS % (AUTO) 58.2 %; PLT - PLATELET COUNT 480 10^3/uL (130-450); RED BLOOD COUNT 4.34 10^6/uL (4.20-5.40); WHITE BLOOD COUNT 14.4 x10^3/uL (4.8-10.8)
[2022-08-12 03:53] LABS: ALBUMIN 4.1 g/dL (3.2-5.5); BILIRUBIN,TOTAL 2.3 mg/dL (0.2-1.0); CALCIUM 9.1 mg/dL (8.5-10.3); CREATININE 0.7 mg/dL (0.4-1.0); POTASSIUM 3.6 mmol/L (3.5-5.0); TOTAL PROTEIN 8.1 g/dL (6.7-8.2)
== END 2022-08-12 04:40 | disposition left against medical advice (07) ==
LOC: EDBD → EDUNIT# → ED 03:12
DX: R10.10 Upper abdominal pain, unspecified (principal); Z59.00 Homelessness unspecified
CPT/HCPCS: 36415; 80053; 83690; 85025; 99283; 99284

== ENCOUNTER 2023-05-31 23:03 | Outpatient (CLI) | payer MEDICAID | END 2023-05-31 23:04 | disposition left against medical advice (07) | LOC: EMS 23:03 | DX: R07.89 Other chest pain (principal); R20.2 Paresthesia of skin ==

== ENCOUNTER 2023-06-06 19:27 | Outpatient (CLI) | payer MEDICAID | END 2023-06-06 23:59 | disposition critical access hospital (66) | LOC: EMS 19:27 | DX: L53.9 Erythematous condition, unspecified (principal); L98.8 Other specified disorders of the skin and subcutaneous tissue | CPT/HCPCS: A0425; A0429; A0999 ==

== ENCOUNTER 2023-06-06 19:50 | Emergency (ER) | payer MEDICAID ==
[2023-06-06 20:02] VITALS: BP 137/101; O2SAT 100
[2023-06-06] MEDS ORDERED: SODIUM CHLORIDE 0.9% 1,000 ML IV STA (20:16)
[2023-06-06 20:42] LABS: BASOPHILS # (AUTO) 0.1 10^3/uL (0.0-0.1); BASOPHILS % (AUTO) 0.4 %; EOSINOPHILS # (AUTO) 0.2 10^3/uL (0.0-0.7); EOSINOPHILS % (AUTO) 1.2 %; HCT - HEMATOCRIT 37.1 % (37.0-47.0); LYMPHOCYTES # (AUTO) 2.8 10^3/uL (1.5-3.5); LYMPHOCYTES % (AUTO) 22.6 %; MEAN CORPUSCULAR HEMOGLOBIN 27.8 pg (27.0-31.0); MEAN CORPUSCULAR HGB CONC 32.3 g/dL (32.0-36.0); MEAN CORPUSCULAR VOLUME 85.9 fL (81.0-99.0); MEAN PLATELET VOLUME 8.6 fL (7.9-10.8); MONOCYTES # (AUTO) 0.9 10^3/uL (0.0-1.0); MONOCYTES % (AUTO) 7.7 %; NEUTROPHILS # (AUTO) 8.3 10^3/uL (1.5-6.6); NEUTROPHILS % (AUTO) 67.7 %; PLT - PLATELET COUNT 420 10^3/uL (130-450); RED BLOOD COUNT 4.32 10^6/uL (4.20-5.40); RED CELL DISTRIBUTION WIDTH 13.2 % (12.0-15.0); WHITE BLOOD COUNT 12.2 x10^3/uL (4.8-10.8)
[2023-06-06 21:01] LABS: ALBUMIN 3.7 g/dL (3.2-5.5); BILIRUBIN,TOTAL 0.2 mg/dL (0.2-1.0); CREATININE 0.9 mg/dL (0.6-1.3); POTASSIUM 3.8 mmol/L (3.5-4.5); TOTAL PROTEIN 7.4 g/dL (6.4-8.9)
--- NOTE | 2023-06-06 21:03 | ED Physician Documentation ---
History of Present Illness - Stated complaint Stated Complaint: MULT WOUNDS, CONCERNED ABOUT BLOOD POISONING - Chief complaint Chief Complaint: General - History obtained from History obtained from: Patient - Additonal information Additional information: Patient is a 33-year-old female presenting for evaluation of multiple wounds to her body that have been increasing in size for the past 1 week. Patient states she believes they are from a open "sticker spain". Patient also admits to methamphetamine use and last use yesterday. She denies fever. She denies chest pain, shortness of air, abdominal symptoms. Review of Systems Constitutional: denies: Fever Cardiac: denies: Chest pain / pressure Respiratory: denies: Dyspnea GI: denies: Abdominal Pain Skin: reports: Rash PD PAST MEDICAL HISTORY - Past Medical History Cardiovascular: None Respiratory: None Endocrine/Autoimmune: None - Past Surgical History Past Surgical History: Yes General: Cholecystectomy, Other HEENT: Tonsil/Adenoidectomy - Present Medications Home Medications: Ambulatory Orders Medication Instructions Recorded Confirmed Sulfamethox/Trimeth 800/160 1 each PO BID #14 tablet 06/06/23 [Bactrim Ds 800/160] cephALEXin [Keflex] 500 mg PO Q6H #28 cap 06/06/23 - Allergies Allergies/Adverse Reactions: Allergies Allergy/AdvReac Type Severity Reaction Status Date / Time Penicillins Allergy Unknown Verified 08/12/22 03:18 - Social History Does the pt smoke?: Yes Smoking Status: Current every day smoker Does the pt drink ETOH?: No Does the pt have substance abuse?: Yes - Immunizations Immunizations are current?: Yes - POLST Patient has POLST: No PD ED PE NORMAL - General General: Alert and oriented X 3, No acute distress, Well developed/nourished - HEENT HEENT: Atraumatic, Moist mucous membranes, Pharynx benign - Neck Neck: Supple, no meningeal sign - Cardiac Cardiac: No murmur (Tachycardic, regular rhythm), Strong equal pulses - Respiratory Respiratory: No respiratory distress, Clear bilaterally - Abdomen Abdomen: Soft, Non tender - Extremities Extremities: Other (Multiple scabbed areas to bilateral feet and to right forearm with surrounding erythema, no fluctuance) - Neuro Neuro: Alert and oriented X 3, No motor deficit, Normal speech Results - Vitals Vitals: Vital Signs - 24 hr 06/06/23 19:55 Temperature 36.8 C Heart Rate 120 H Respiratory 20 Rate Blood Pressure 137/101 H O2 Saturation 100 Oxygen O2 Source Room air - EKG (time done) 2033 EKG releavant findings:: EKG personally interpreted by author of this note. Relevant findings are: Rate 111, Sinus tachycardia, no STEMI, no ST depressions - Labs Labs: Laboratory Tests 06/06/23 06/06/23 06/06/23 20:35 20:35 20:35 WBC 12.2 H RBC 4.32 Hgb 12.0 Hct 37.1 MCV 85.9 MCH 27.8 MCHC 32.3 RDW 13.2 Plt Count 420 MPV 8.6 Neut # (Auto) 8.3 H Lymph # (Auto) 2.8 [place] # (Auto) 0.9 Eos # (Auto) 0.2 Baso # (Auto) 0.1 Absolute Nucleated RBC 0.00 Nucleated RBC % 0.0 Sodium 137 Potassium 3.8 Chloride 105 Carbon Dioxide 29 Anion Gap 3.0 L BUN 9 Creatinine 0.9 Estimated GFR (MDRD) 72 L Glucose 72 L Lactic Acid 1.1 Calcium 9.0 Total Bilirubin 0.2 AST 11 ALT 10 Alkaline Phosphatase 92 Total Protein 7.4 Albumin 3.7 Globulin 3.7 Albumin/Globulin Ratio 1.0 PD Medical Decision Making - ED course Complexity details: reviewed results, re-evaluated patient, d/w patient ED course: Patient is a 33-year-old female presenting for evaluation of multiple wounds to her feet and on her arm. She is tachycardic but otherwise stable vital signs. She is well-appearing. Labs were obtained including CBC, chemistries, lactic and blood cultures. Lactic is within normal limits. Mildly elevated white blood cell count. Heart rate improved on playground monitor with IV fluids. Patient has multiple scabbed wounds with surrounding erythema but no fluctuance to suggest abscess or need for incision and drainage at this time. Patient to be started on Bactrim and Keflex. She is advised on treatment plan as well as concerning symptoms to return for. Departure - Departure Disposition: 01 Home, Self Care Clinical Impression: Cellulitis, Tachycardia, Methamphetamine use Instructions: ED Infec Skin Cellulitis Prescriptions: Sulfamethox/Trimeth 800/160 [Bactrim Ds 800/160] 1 each PO BID #14 tablet cephALEXin [Keflex] 500 mg PO Q6H #28 cap Comments: You have multiple wounds which appear to have an infection. I am starting you on 2 antibiotics and have sent these prescriptions to [facility] in [place]. We have obtained blood test tonight including blood cultures. If there are any abnormalities with the blood cultures we will notify you. Please make sure you complete the course of antibiotics as directed. I would encourage not using methamphetamine. I would also recommend follow-up with your primary care provider or to the walk-in clinic for reevaluation of your wounds. If you notice any worsening please consider return to the emergency department. Forms: PCP List Discharge Date/Time: 06/06/23 21:40
[2023-06-06] MEDS ORDERED: SULFAMETH/TRIMETH DS 800/160 MG TABLET PO STA (21:20)
[2023-06-06] MEDS ORDERED: cephALEXin 250 MG CAPSULE PO STA (21:21)
== END 2023-06-06 21:40 | disposition home or self-care (01) ==
LOC: EDUNIT# → ED 19:50
DX: L03.116 Cellulitis of left lower limb (principal); L03.115 Cellulitis of right lower limb; L03.113 Cellulitis of right upper limb; R00.0 Tachycardia, unspecified; F15.10 Other stimulant abuse, uncomplicated; F17.200 Nicotine dependence, unspecified, uncomplicated
CPT/HCPCS: 36415; 80053; 83605; 85025; 87040; 93005; 96360; 99284; A9270

== ENCOUNTER 2023-08-17 21:22 | Outpatient (CLI) | payer MEDICAID | END 2023-08-17 21:23 | disposition critical access hospital (66) | LOC: EMS 21:22 | DX: R07.89 Other chest pain (principal); R55 Syncope and collapse; R00.0 Tachycardia, unspecified; R20.2 Paresthesia of skin | CPT/HCPCS: A0425; A0429; A0999 ==

== ENCOUNTER 2023-08-17 21:45 | Emergency (ER) | payer MEDICAID ==
[2023-08-17] MEDS ORDERED: SODIUM CHLORIDE 0.9% 1,000 ML IV STA (22:00)
[2023-08-17] MEDS ORDERED: LORazepam 2 MG/ML VIAL IVP STA (22:01)
--- NOTE | 2023-08-17 22:03 | ED Physician Documentation ---
History of Present Illness - Stated complaint Stated Complaint: CHEST TIGHTNESS - Chief complaint Chief Complaint: Cardiac - History obtained from History obtained from: Patient - Additonal information Additional information: 33yF with pmh Methamphetamine abuse presents brought in by EMS after walking to her RV and experiencing sudden onset chest pain tingling in extremities, pervasive blackness in her vision and a syncopal episode. She then went to her IV and became extremely anxious, hyperventilated, stated that her face began to feel numb twisted her right arm. On scene, EMS stated that she was extremely agitated but able to be calmed down, received 324 of aspirin on route. Patient intoxicated appearing on history history is limited by this. PD PAST MEDICAL HISTORY - Past Medical History Cardiovascular: None Respiratory: None Endocrine/Autoimmune: None - Past Surgical History Past Surgical History: Yes General: Cholecystectomy, Other HEENT: Tonsil/Adenoidectomy - Present Medications Home Medications: Ambulatory Orders Medication Instructions Recorded Confirmed Sulfamethox/Trimeth 800/160 1 each PO BID #14 tablet 06/06/23 [Bactrim Ds 800/160] cephALEXin [Keflex] 500 mg PO Q6H #28 cap 06/06/23 - Allergies Allergies/Adverse Reactions: Allergies Allergy/AdvReac Type Severity Reaction Status Date / Time Penicillins Allergy Unknown Verified 08/17/23 22:00 - Social History Does the pt smoke?: Yes Smoking Status: Current every day smoker Does the pt drink ETOH?: No Does the pt have substance abuse?: Yes - Immunizations Immunizations are current?: Yes - POLST Patient has POLST: No PD ED PE NORMAL - Vitals Vital signs reviewed: Yes - General General: Alert and oriented X 3, Other (tearful, anxious appearing, intoxicated appearing) - HEENT HEENT: Atraumatic, PERRL, EOMI - Neck Neck: Supple, no meningeal sign - Cardiac Cardiac: Other (mildly tachycardic rate, regular rhythm) - Respiratory Respiratory: No respiratory distress, Clear bilaterally - Abdomen Abdomen: Non tender, Non distended - Derm Derm: Normal color, Warm and dry - Extremities Extremities: No deformity - Neuro Neuro: Alert and oriented X 3, home care nurse 2-12 intact, No motor deficit, No sensory deficit - Psych Psych: Other (clinically intoxicated) Results - Vitals Vitals: Vital Signs - 24 hr 08/17/23 21:50 Temperature 36.8 C Heart Rate 108 H Respiratory 15 Rate Blood Pressure 130/102 H O2 Saturation 100 Oxygen O2 Source Room air - EKG (time done) 3237 EKG releavant findings:: EKG personally interpreted by author of this note. Relevant findings are: Rate: Rate (enter#) (99) Rhythm: NSR [place]: Normal Intervals: Normal [place] QRS: Normal Ischemia: Normal ST segments - Labs Labs: Laboratory Tests 08/17/23 08/17/23 22:00 22:00 WBC 12.8 H RBC 4.25 Hgb 11.3 L Hct 35.9 L MCV 84.5 MCH 26.6 L MCHC 31.5 L RDW 14.0 Plt Count 413 MPV 8.8 Neut # (Auto) 10.1 H Lymph # (Auto) 1.4 L [place] # (Auto) 1.1 H Eos # (Auto) 0.1 Baso # (Auto) 0.1 Absolute Nucleated RBC 0.00 Nucleated RBC % 0.0 Sodium 135 Potassium 4.0 Chloride 102 Carbon Dioxide 27 Anion Gap 6.0 BUN 15 Creatinine 0.9 Estimated GFR (MDRD) 72 L Glucose 86 Calcium 9.5 Total Bilirubin 0.3 AST 16 ALT 13 Alkaline Phosphatase 77 Troponin I High Sens 2.5 Total Protein 7.7 Albumin 4.1 Globulin 3.6 Albumin/Globulin Ratio 1.1 Lipase 10 L PD Medical Decision Making - ED course ED course: 33yF presents to the ED s/p methamphetamine use, syncopal episode, chest pain and possible anxiety attack. plan to obtain cbc, abdominal panel, troponin, ekg, cxr, provide IVF and IV ativan and reevaluate. Mild anemia on labwork, otherwise looks good. she does have prior history of anemia and we will advise to f/u with pcp regarding this.cxr benign per my wet read. Patient denies SI/HI or visual hallucination but does endorse audiohallucinations that can be pervasive, telling her to hurt herself. patient expresses desire to stop using methamphetamine. Plan to have her talk with telepsych overnight. Patient will also benefit from addiction cessation treatment resources from . Plan to endorse to incoming daytime ED MD at 7am shift change pending . Departure - Departure Clinical Impression: Anemia, Chest pain, Methamphetamine abuse, Hallucinations Condition: Stable Forms: PCP List
[2023-08-17 22:19] LABS: BASOPHILS # (AUTO) 0.1 10^3/uL (0.0-0.1); BASOPHILS % (AUTO) 0.5 %; EOSINOPHILS # (AUTO) 0.1 10^3/uL (0.0-0.7); EOSINOPHILS % (AUTO) 0.9 %; HCT - HEMATOCRIT 35.9 % (37.0-47.0); HGB - HEMOGLOBIN 11.3 g/dL (12.0-16.0); LYMPHOCYTES # (AUTO) 1.4 10^3/uL (1.5-3.5); LYMPHOCYTES % (AUTO) 10.9 %; MEAN CORPUSCULAR HEMOGLOBIN 26.6 pg (27.0-31.0); MEAN CORPUSCULAR HGB CONC 31.5 g/dL (32.0-36.0); MEAN CORPUSCULAR VOLUME 84.5 fL (81.0-99.0); MEAN PLATELET VOLUME 8.8 fL (7.9-10.8); MONOCYTES # (AUTO) 1.1 10^3/uL (0.0-1.0); MONOCYTES % (AUTO) 8.4 %; NEUTROPHILS # (AUTO) 10.1 10^3/uL (1.5-6.6); NEUTROPHILS % (AUTO) 79.1 %; PLT - PLATELET COUNT 413 10^3/uL (130-450); RED BLOOD COUNT 4.25 10^6/uL (4.20-5.40); WHITE BLOOD COUNT 12.8 x10^3/uL (4.8-10.8)
[2023-08-17 22:22] LABS: ALBUMIN 4.1 g/dL (3.2-5.5); ALBUMIN/GLOBULIN RATIO 1.1 (1.0-2.2); BILIRUBIN,TOTAL 0.3 mg/dL (0.2-1.0); CALCIUM 9.5 mg/dL (8.5-10.3); CREATININE 0.9 mg/dL (0.6-1.3); TOTAL PROTEIN 7.7 g/dL (6.4-8.9)
[2023-08-17 22:31] LABS: TROPONIN I HIGH SENSITIVITY 2.5 ng/L (2.3-14.8)
--- NOTE | 2023-08-17 23:09 | XRAY Report ---
PROCEDURE: Chest 1 View X-Ray INDICATIONS: Chest Pain TECHNIQUE: One view of the chest was acquired. COMPARISON: None. FINDINGS: Surgical changes and devices: None. Lungs and pleura: No pleural effusions or pneumothorax. Lungs are clear. Mediastinum: Mediastinal contours appear normal. Heart size is normal. Bones and chest wall: No suspicious bony lesions. Overlying soft tissues appear unremarkable. IMPRESSION: No acute cardiopulmonary process. Reviewed by: Angela Del Rio MD on 08/17/2023 11:08 PM PDT Approved by: Angela Del Rio MD on 08/17/2023 11:08 PM PDT Station ID: [id number]
[2023-08-17 23:39] LABS: CK- CREATINE KINASE 54 IU/L (30-223); ETOH - ETHANOL < 10.0 mg/dL; MAGNESIUM 1.7 mg/dL (1.7-2.3)
[2023-08-17 23:44] LABS: ACETAMINOPHEN < 0.1 ug/mL; SALICYLATE < 1.5 mg/dL
[2023-08-17 23:50] LABS: THYROID STIMULATING HORMONE 0.64 uIU/mL (0.34-5.60)
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
[2023-08-18 00:10] LABS: MUDS CUTOFF CONCENTRATIONS CUTOFF CONC BELOW:
[2023-08-18 00:15] LABS: HCG UR QUAL NEGATIVE
[2023-08-18 00:27] LABS: AMPHETAMINE SCREEN,URINE POSITIVE (NEGATIVE); BARBITURATE SCREEN,UR NEGATIVE (NEGATIVE); BENZODIAZEPINES SCREEN, URINE NEGATIVE (NEGATIVE); COCAINE SCREEN URINE NEGATIVE (NEGATIVE); METHADONE SCREEN, URINE NEGATIVE (NEGATIVE); METHAMPHETAMINES SCREEN, URINE POSITIVE (NEGATIVE); OPIATE SCREEN, URINE NEGATIVE (NEGATIVE); OXYCODONE SCREEN, URINE NEGATIVE (NEGATIVE); PROPOXYPHENE SCREEN, URINE NEGATIVE (NEGATIVE); THC CANNABINOID SCREEN, URINE NEGATIVE (NEGATIVE); TRICYCLIC ANTIDEPRESSANT,URINE NEGATIVE (NEGATIVE)
[2023-08-18 04:31] VITALS: O2SAT 100
[2023-08-18 10:22] VITALS: BP 117/76
--- NOTE | 2023-08-18 10:28 | ED Physician Documentation ---
ED Addendum - Addendum Addendum: Patient signed out to me by overnight physician awaiting social work evaluation for Substance abuse. 08/18/23 10:56 Patient has been accepted to [facility] Which was arranged by social work. A prescription for Zyprexa which was recommended by telepsychiatry was sent to [facility] pharmacy. Patient understands to go directly to [facility]. Departure - Departure Disposition: 01 Home, Self Care Clinical Impression: Anemia, Chest pain, Methamphetamine abuse, Hallucinations Condition: Stable Instructions: ED Drug Abuse General Prescriptions: OLANZapine ODT [Zyprexa Odt] 5 mg TL BID #30 tablet Comments: You have been accepted to [facility]. Please go there directly. [facility] [address] [place] [address] Main The [facility] offers a monitored and safe setting for individuals withdrawing from alcohol and drugs, and counseling for individuals experiencing a mental health crisis. All services are provided in a 10-bed facility where intensive medical monitoring is required along with stabilization services. The goal of these services is to assess a clients mental health and substance use disorder related needs, and assist them in accessing the services they need to recover. The psychiatrist also recommended starting you on Zyprexa twice a day. [facility] Forms: PCP List Discharge Date/Time: 08/18/23 11:08
[2023-08-18] MEDS ORDERED: OLANZapine ODT 5 MG TABLET TL ONE (10:57)
== END 2023-08-18 11:08 | disposition home or self-care (01) ==
LOC: EDUNIT# → ED 21:45
DX: F15.10 Other stimulant abuse, uncomplicated (principal); R07.89 Other chest pain; D64.9 Anemia, unspecified; R44.3 Hallucinations, unspecified; F17.200 Nicotine dependence, unspecified, uncomplicated
CPT/HCPCS: 36415; 71045; 80053; 80306; 80307; 80320; 80329; 81025; 82550; 83690; 83735; 84443; 84484; 84702; 85025; 93005; 99283; 99284; A9270; G0427; J2060; Q3014

== ENCOUNTER 2024-02-24 19:12 | Emergency (ER) | payer MEDICAID ==
[2024-02-24 19:26] VITALS: BP 140/90; O2SAT 100
== END 2024-02-24 20:10 | disposition left against medical advice (07) ==
LOC: ED 19:12
DX: Z53.21 Procedure and treatment not carried out due to patient leaving prior to being seen by health care provider (principal)

== ENCOUNTER 2024-04-13 16:01 | Emergency (ER) | payer MEDICAID ==
[2024-04-13 16:22] VITALS: BP 150/98; O2SAT 100
[2024-04-13 17:00] LABS: BASOPHILS # (AUTO) 0.1 10^3/uL (0.0-0.1); BASOPHILS % (AUTO) 0.8 %; EOSINOPHILS # (AUTO) 0.2 10^3/uL (0.0-0.7); EOSINOPHILS % (AUTO) 2.4 %; HCT - HEMATOCRIT 39.5 % (37.0-47.0); HGB - HEMOGLOBIN 12.6 g/dL (12.0-16.0); LYMPHOCYTES # (AUTO) 3.4 10^3/uL (1.5-3.5); LYMPHOCYTES % (AUTO) 35.3 %; MEAN CORPUSCULAR HEMOGLOBIN 26.5 pg (27.0-31.0); MEAN CORPUSCULAR HGB CONC 31.9 g/dL (32.0-36.0); MEAN PLATELET VOLUME 8.5 fL (7.9-10.8); MONOCYTES # (AUTO) 0.6 10^3/uL (0.0-1.0); MONOCYTES % (AUTO) 5.6 %; NEUTROPHILS # (AUTO) 5.4 10^3/uL (1.5-6.6); NEUTROPHILS % (AUTO) 55.7 %; PLT - PLATELET COUNT 422 10^3/uL (130-450); RED BLOOD COUNT 4.76 10^6/uL (4.20-5.40); RED CELL DISTRIBUTION WIDTH 13.6 % (12.0-15.0); WHITE BLOOD COUNT 9.8 x10^3/uL (4.8-10.8)
[2024-04-13 17:18] LABS: ALBUMIN 4.4 g/dL (3.2-5.5); ALBUMIN/GLOBULIN RATIO 1.4 (1.0-2.2); ALKALINE PHOSPHATASE 77 IU/L (42-121); ALT ALANINE AMINOTRANSFERASE 13 IU/L (10-60); AST ASPARTATE AMINOTRANSFERASE 15 IU/L (10-42); BILIRUBIN,TOTAL 0.4 mg/dL (0.2-1.0); BUN - BLOOD UREA NITROGEN 13 mg/dL (6-20); CALCIUM 9.8 mg/dL (8.5-10.3); CARBON DIOXIDE - CO2 24 mmol/L (21-32); CHLORIDE 107 mmol/L (101-111); CREATININE 0.9 mg/dL (0.6-1.3); GFR - MDRD 72 (>89); GLUCOSE 92 mg/dL (74-104); POTASSIUM 3.5 mmol/L (3.5-4.5); SODIUM 139 mmol/L (135-145); TOTAL PROTEIN 7.6 g/dL (6.4-8.9)
[2024-04-13 17:19] LABS: LIPASE < 10 U/L (11-82)
[2024-04-13 17:20] LABS: TROPONIN I HIGH SENSITIVITY 2.9 ng/L (2.3-14.8)
--- NOTE | 2024-04-13 20:27 | ED Physician Documentation ---
History of Present Illness - Stated complaint Stated Complaint: CP/N/V - Chief complaint Chief Complaint: Neuro PD PAST MEDICAL HISTORY - Past Medical History Cardiovascular: None Respiratory: None Endocrine/Autoimmune: None GI: Other Psych: Anxiety, Bipolar disorder, Post traumatic stress disorder - Past Surgical History Past Surgical History: Yes General: Cholecystectomy, Other HEENT: Tonsil/Adenoidectomy - Present Medications Home Medications: Ambulatory Orders Medication Instructions Recorded Confirmed No Known Home Medications 04/13/24 04/13/24 - Allergies Allergies/Adverse Reactions: Allergies Allergy/AdvReac Type Severity Reaction Status Date / Time latex Allergy Rash Verified 04/13/24 16:14 Penicillins Allergy Unknown Verified 02/24/24 19:21 - Social History Does the pt smoke?: Yes Smoking Status: Current every day smoker Does the pt drink ETOH?: No Does the pt have substance abuse?: Yes Substance Use and Type: Meth - Immunizations Immunizations are current?: Yes - POLST Patient has POLST: No Results - Vitals Vitals: Vital Signs - 24 hr 04/13/24 16:08 Temperature 36.4 C L Heart Rate 115 H Respiratory 18 Rate Blood Pressure 150/98 H O2 Saturation 100 Oxygen O2 Source Room air - Labs Labs: Laboratory Tests 04/13/24 04/13/24 16:55 16:55 WBC 9.8 RBC 4.76 Hgb 12.6 Hct 39.5 MCV 83.0 MCH 26.5 L MCHC 31.9 L RDW 13.6 Plt Count 422 MPV 8.5 Neut # (Auto) 5.4 Lymph # (Auto) 3.4 Starr # (Auto) 0.6 Eos # (Auto) 0.2 Baso # (Auto) 0.1 Absolute Nucleated RBC 0.00 Nucleated RBC % 0.0 Sodium 139 Potassium 3.5 Chloride 107 Carbon Dioxide 24 Anion Gap 8.0 BUN 13 Creatinine 0.9 Estimated GFR (MDRD) 72 L Glucose 92 Calcium 9.8 Total Bilirubin 0.4 AST 15 ALT 13 Alkaline Phosphatase 77 Troponin I High Sens 2.9 Total Protein 7.6 Albumin 4.4 Globulin 3.2 Albumin/Globulin Ratio 1.4 Lipase < 10 L Departure - Departure
== END 2024-04-13 20:44 | disposition left against medical advice (07) ==
LOC: ED 16:01
DX: Z53.21 Procedure and treatment not carried out due to patient leaving prior to being seen by health care provider (principal)
CPT/HCPCS: 36415; 80053; 83690; 84484; 85025; 93005

== ENCOUNTER 2024-05-03 13:55 | Outpatient (CLI) | payer MEDICAID | END 2024-05-03 23:59 | disposition left against medical advice (07) | LOC: EMS 13:55 | DX: T43.651A Poisoning by methamphetamines accidental (unintentional), initial encounter (principal); R51.9 Headache, unspecified ==

== ENCOUNTER 2024-06-18 04:08 | Outpatient (CLI) | payer MEDICAID | END 2024-06-18 04:09 | disposition critical access hospital (66) | LOC: EMS 04:08 | DX: S91.342A Puncture wound with foreign body, left foot, initial encounter (principal); W45.0XXA Nail entering through skin, initial encounter; Y93.01 Activity, walking, marching and hiking; Y92.89 Other specified places as the place of occurrence of the external cause | CPT/HCPCS: A0425; A0427; A0999 ==

== ENCOUNTER 2024-06-18 04:27 | Emergency (ER) | payer MEDICAID ==
--- NOTE | 2024-06-18 04:37 | ED Physician Documentation ---
PD HPI LOWER EXT INJURY - Stated complaint Stated Complaint: NAIL IN FOOT - History obtained from History obtained from: Patient, EMS - Additional information Additional information: BIBA. Approximately 45-60 minutes [employer]AVING [employer]ING [employer], patient was walking barefoot through a wooded area when she stepped on an exposed nail sticking out from a board. EMS reports that the board was very long and they opted to cut the board with a chainsaw and then transport patient with the nail still in the board and in her foot. Patient was given 75 mcg fetnanyl en route x 2 doses with adequate analgesia (when lying still) per patient. Patient says she is UTD on tetanus. She denies numbness, weakness. PD PAST MEDICAL HISTORY - Past Medical History Cardiovascular: None Respiratory: None Endocrine/Autoimmune: None GI: Other Psych: Anxiety, Bipolar disorder, Post traumatic stress disorder - Past Surgical History Past Surgical History: Yes General: Cholecystectomy, Other HEENT: Tonsil/Adenoidectomy - Present Medications Home Medications: Ambulatory Orders Medication Instructions Recorded Confirmed Ciprofloxacin HCl 1 tablet PO BID 10 Days #20 tablet 06/18/24 - Allergies Allergies/Adverse Reactions: Allergies Allergy/AdvReac Type Severity Reaction Status Date / Time latex Allergy Rash Verified 04/13/24 16:14 Penicillins Allergy Unknown Verified 02/24/24 19:21 - Social History Does the pt smoke?: Yes Smoking Status: Current every day smoker Does the pt drink ETOH?: No Does the pt have substance abuse?: Yes - Immunizations Immunizations are current?: Yes - POLST Patient has POLST: No PD ED PE NORMAL - Vitals Vital signs reviewed: Yes - General General: Alert and oriented X 3, No acute distress, Well developed/nourished - Cardiac Cardiac: No murmur - Respiratory Respiratory: No respiratory distress, Clear bilaterally - Neuro Neuro: Alert and oriented X 3 PD ED PE EXPANDED - Cardiac Cardiac: Tachy, Regular Rhythm - Extremities Extremities: Other (see MDM, below) - Neuro Neuro: Other (understandably anxious but at times expressing racing thoughts and repeatedly needs reassurance and redirection to focus on situation) Results - Vitals Vitals: Oxygen O2 Source Room air PD Medical Decision Making - ED course Complexity details: considered differential, d/w patient ED course: affixed to patient's left foot (at plantar surface), there is a piece of rotting wood that approximates a 2x4 and approximately one foot in length. there are two nailheads flush with underside and two nail heads on top aspect (the latter two have most of the nails exposed on underside, whereas the underside's nailheads do not have correlating visible nail shafts on the top surface. One of the nailheads' position correlates with likely entry into a small, perpendicular piece of wood on top surface. Thus, based on inspection combined with xrays, I suspect only one nail is embedded in the plantar surface of the foot. She is given 2mg IV dilaudid and I then attempted slow, gentle traction on the wood with ED RN holding countertraction at the ankle. Patient asked me to stop this attempt as it was causing too much painful discomfort. We then discussed option for conscious sedation, and I recommended to patient that we undertaken conscious sedation with ketamine. Informed consent reviewed and signed by branden arauz after we reviewed risks/benefits. However, patient became increasingly anxious up until the moment the ED RN was ready to administer the ketamine. Despite attempts by myself and other ED staff to reassure patient that this would be the optimal means to remove the FB from her foot, she refused the conscious sedation at the last second (ED RN had the syringe attached to the IV hub but had not yet administered any of the ketamine). Patient asks that I try again with simple traction/countertraction. Fortunately, this was successful on this second attempt and without disproportionate distress noted on part of patient; she briefly cried out but rapidly was calmed and quickly reported feeling much improved, both from the pain perspective as well as the anxiety the event was causing her. Post-procedure xrays show no evidence of bony injury nor retained FB. She is given 500mg PO cipro for wound prophylaxis and rx for 10-day course of same. We carefully reviewed return precautions with emphasis placed on low threshold for return for signs/symptoms of infection. Given IV toradol prior to d/c and she declines rx analgesics. Departure - Departure Disposition: 01 Home, Self Care Clinical Impression: Puncture wound of foot Qualifiers: Encounter type: initial encounter Laterality: left Qualified Code(s): S91.332A - Puncture wound without foreign body, left foot, initial encounter Condition: Good Instructions: ED Wound Puncture General Prescriptions: Ciprofloxacin HCl 1 tablet PO BID 10 Days #20 tablet Comments: I have electronically submitted a prescription for an antibiotic (ciprofloxacin) to the [facility] pharmacy in [place]. This is for a 10-day course of the antibiotic. If possible, you should have a recheck of the injury in the next 3 to 5 days. Contact your primary care provider if you have a doctor to arrange for this appointment. If you do not have a primary care provider, you can go to a walk- in clinic or urgent care center for the recheck. Certainly, if your symptoms worsen or if you develop new/concerning signs/symptoms (such as fever, pus discharge from the wound, numbness, weakness, redness that is spreading and/or streaking from the puncture), you can return to the emergency department for reevaluation. Forms: PCP List Discharge Date/Time: 06/18/24 06:14
[2024-06-18] MEDS: HYDROmorphone 1 MG/ML CARPUJECT IVP STA (04:41)
[2024-06-18] MEDS: KETAMINE 500 MG/10 ML VIAL IVP STA (05:22)
[2024-06-18] MEDS: CIPROFLOXACIN 400 MG/200 ML 400 MG/200 ML BAG IV STA (05:25)
[2024-06-18] MEDS: KETOROLAC 30 MG/ML VIAL IVP STA (05:25)
[2024-06-18] MEDS: ONDANSETRON 4 MG/2 ML VIAL IVP STA (05:49)
[2024-06-18] MEDS: CIPROFLOXACIN 250 MG TABLET PO STA (06:01)
[2024-06-18 06:20] VITALS: BP 144/68; O2SAT 99
--- NOTE | 2024-06-18 08:10 | XRAY Report ---
PROCEDURE: Foot 1-2V LT INDICATIONS: FB TECHNIQUE: 2 views of the foot were acquired. COMPARISON: None. FINDINGS: Bones: No obvious fracture. No dislocations. No suspicious bony lesions. Soft tissues: No tibiotalar joint effusion. Achilles tendon appears normal. 2 nails impacted at the plantar surface of the foot. Attached foreign body and additional nails. IMPRESSION: 2 nails impacted at the plantar surface of the foot. Reviewed by: Ernie Gutierres MD on 06/18/2024 8:08 AM [facility] Approved by: Ernie Gutierres MD on 06/18/2024 8:08 AM PDT Station ID: [id number]
--- NOTE | 2024-06-18 08:12 | XRAY Report ---
PROCEDURE: Foot 3+V LT INDICATIONS: repeat xray s/p FB removal TECHNIQUE: 3 views of the foot were acquired. COMPARISON: Left foot radiographs earlier today. FINDINGS: Bones: No fractures or dislocations. No suspicious bony lesions. Soft tissues: No tibiotalar joint effusion. Achilles tendon appears normal. Nail have been removed from the plantar surface of the foot. No radiopaque foreign body. IMPRESSION: Nails have been removed from the foot. No radiopaque foreign body. No significant discrepancy with the overnight preliminary interpretation. Reviewed by: Ernie Gutierres MD on 06/18/2024 8:11 AM PDT Approved by: Ernie Gutierres MD on 06/18/2024 8:11 AM PDT Station ID: [id number]
== END 2024-06-18 06:14 | disposition home or self-care (01) ==
LOC: EDUNIT# → ED 04:27
DX: S91.332A Puncture wound without foreign body, left foot, initial encounter (principal); W22.09XA Striking against other stationary object, initial encounter; Y93.01 Activity, walking, marching and hiking; Y92.821 Forest as the place of occurrence of the external cause; F17.200 Nicotine dependence, unspecified, uncomplicated
CPT/HCPCS: 73620; 73630; 96374; 99283; 99284; A9270; J1170

== ENCOUNTER 2024-07-06 12:23 | Outpatient (CLI) | payer MEDICAID | END 2024-07-06 23:59 | disposition left against medical advice (07) | LOC: EMS 12:23 | DX: R40.4 Transient alteration of awareness (principal); R51.9 Headache, unspecified ==

== ENCOUNTER 2024-12-24 19:11 | Inpatient (IN) ==
[2024-12-24 19:31] LABS: BASOPHILS # (AUTO) 0.1 10^3/uL (0.0-0.1); BASOPHILS % (AUTO) 0.5 %; EOSINOPHILS # (AUTO) 0.1 10^3/uL (0.0-0.7); EOSINOPHILS % (AUTO) 1.1 %; HCT - HEMATOCRIT 30.8 % (37.0-47.0); HGB - HEMOGLOBIN 9.3 g/dL (12.0-16.0); LYMPHOCYTES # (AUTO) 1.8 10^3/uL (1.5-3.5); LYMPHOCYTES % (AUTO) 19.4 %; MEAN CORPUSCULAR HEMOGLOBIN 24.3 pg (27.0-31.0); MEAN CORPUSCULAR HGB CONC 30.2 g/dL (32.0-36.0); MEAN CORPUSCULAR VOLUME 80.6 fL (81.0-99.0); MEAN PLATELET VOLUME 8.1 fL (7.9-10.8); MONOCYTES # (AUTO) 0.6 10^3/uL (0.0-1.0); MONOCYTES % (AUTO) 6.8 %; NEUTROPHILS # (AUTO) 6.6 10^3/uL (1.5-6.6); NEUTROPHILS % (AUTO) 71.8 %; PLT - PLATELET COUNT 375 10^3/uL (130-450); RED BLOOD COUNT 3.82 10^6/uL (4.20-5.40); RED CELL DISTRIBUTION WIDTH 15.1 % (12.0-15.0); WHITE BLOOD COUNT 9.1 x10^3/uL (4.8-10.8)
[2024-12-24] MEDS: SODIUM CHLORIDE 0.9% IV STA (19:37)
[2024-12-24] MEDS ORDERED: VANCOMYCIN 1 GM VIAL ONE (19:39)
--- NOTE | 2024-12-24 19:42 | ED Physician Documentation ---
History of Present Illness Stated complaint Stated Complaint: ABNORMAL LABS Chief complaint Chief Complaint: General History obtained from History obtained from: Patient Additonal information Additional information: 34-year-old woman with history of IV drug abuse was seen by my partner earlier this morning for nonspecific symptoms. She had resting tachycardia, her white count was 9. Subsequently both blood cultures are positive for gram-positive cocci with sensitivities pending. She was called back to the emergency department because of same. She states she only injects and veins, does not skin pop. She denies any specific sores from injecting other than her track colon. She only injects in the arms. She denies any significant back pain, cough, abdominal pain. Meds/Allgy Home Medications Ambulatory Orders Medication Instructions Recorded Confirmed ciprofloxacin HCl 500 mg tablet 1 tab PO BID 10 days #20 tabs 06/18/24 ferrous sulfate 325 mg (65 mg 325 mg PO DAILY #30 tabs 12/23/24 iron) tablet (Iron (ferrous sulfate)) Allergies Allergies Allergy/AdvReac Type Severity Reaction Status Date / Time latex Allergy Rash Verified 12/24/24 19:16 Penicillins Allergy Unknown Verified 12/24/24 19:16 PFSH Active Problems All Active Problems (Updated 12/24/24 @ 20:55 by Micah Delacruz DNP) Bacteremia due to Enterococcus (Acute) Anemia (Acute) Dehydration (Acute) Medical History Medical History (Updated 12/24/24 @ 20:55 by Micah Delacruz DNP) Methamphetamine use No pertinent past medical history Surgical History Surgical History (Updated 12/24/24 @ 19:38 by Ana Knox RN) No pertinent past surgical history Social History Social History Smoking Status: Current every day smoker Number of Years Smoked: 10 How many cigarettes a day do you smoke? (20 cigarettes=1 Pk): 10 Patient requests smoking cessation consult: Yes Initiate information on smoking cessation: Yes Living arrangement: At home Relationship: Level: Independent Do you feel safe in your home environment?: Yes Suffered physical, verbal, emotional, or financial abuse?: No History of Abuse: No Substance Use: amphetamines/methamphetamines Substance Use Details: daily meth use POLST Patient has POLST: No Exam Constitutional She appears well and nontoxic, cooperative with exam and history. Respiratory breath sounds equal bilaterally, normal respiratory effort and clear to auscultation bilaterally Cardiovascular Tachycardic, regular, I do not appreciate a murmur. Gastrointestinal abdomen soft to palpation and nontender to palpation Back/Pelvis no thoracic spine tenderness, no lumbar spine tenderness and thoracic spine ROM normal Results Vitals Vitals: Vital Signs - 24 hr 12/23/24 21:42 12/23/24 22:47 12/24/24 19:14 Temperature 36.9 C Temperature Source Temporal Artery Scan Pulse Rate 130 H Respiratory Rate 18 Blood Pressure 124/86 O2 Saturation 98 O2 Source Room air Room air Pain Intensity 1 3 12/24/24 20:00 12/24/24 20:30 Temperature Temperature Source Pulse Rate 117 H 111 H Respiratory Rate 16 16 Blood Pressure 100/65 114/73 O2 Saturation 99 100 O2 Source Room air Room air Pain Intensity 0 Oxygen O2 Source Room air Labs Labs: Laboratory Tests 12/24/24 19:26 WBC 9.1 RBC 3.82 L Hgb 9.3 L Hct 30.8 L MCV 80.6 L MCH 24.3 L MCHC 30.2 L RDW 15.1 H Plt Count 375 MPV 8.1 Neut # (Auto) 6.6 Lymph # (Auto) 1.8 [place] # (Auto) 0.6 Eos # (Auto) 0.1 Baso # (Auto) 0.1 Absolute Nucleated RBC 0.00 Nucleated RBC % 0.0 Sodium 132 L Potassium 3.8 Chloride 100 L Carbon Dioxide 25 Anion Gap 7.0 BUN 14 Creatinine 0.8 Estimated GFR (MDRD) 82 L Glucose 101 Lactic Acid 0.4 L Calcium 8.9 Total Bilirubin 0.3 AST 14 ALT 26 Alkaline Phosphatase 120 Total Protein 7.7 Albumin 3.4 Globulin 4.3 H Albumin/Globulin Ratio 0.8 L PD Medical Decision Making ED course Complexity details: reviewed results (Labs this evening show stable anemia with still no elevated white count, normal lactate, CMP showing mild hyponatremia.) ED course: 34-year-old woman who was returned to the emergency department because of 2 out of 2 gram-positive blood cultures with preliminary PCR positive for Enterococcus. Local antibiogram reviewed, 100% sensitivity to vancomycin. Started on sepsis fluids and vancomycin. Call to the hospitalist for admission at 7:42 PM. The patient and family are counseled as to the diagnosis and need for admission. This document was made in part using voice recognition software, while efforts are made to proofread this document, sound alike an grammatical errors may occur. Discharge Plan Discharge Patient Disposition: 66 [facility] DC/Xfer Condition: Serious Clinical Impression: Bacteremia due to Enterococcus Interventions: ED Admission Assessment Last Done: 12/24/24 20:49
[2024-12-24] MEDS: VANCOMYCIN INJ 1.5 GM in SODIUM CHLORIDE 0.9% 500 ML IV STA (19:50)
[2024-12-24 19:51] LABS: ALBUMIN 3.4 g/dL (3.2-5.5); ALBUMIN/GLOBULIN RATIO 0.8 (1.0-2.2); BILIRUBIN,TOTAL 0.3 mg/dL (0.2-1.0); CALCIUM 8.9 mg/dL (8.5-10.3); CREATININE 0.8 mg/dL (0.6-1.3); POTASSIUM 3.8 mmol/L (3.5-4.5); TOTAL PROTEIN 7.7 g/dL (6.4-8.9)
--- NOTE | 2024-12-24 21:04 | HISTORY & PHYSICAL EXAMINATION ---
Chief Complaint Chief Complaint Chief Complaint: Fever and malaise History of Present Illness History Obtained From History obtained from: Patient interview History of Present Illness HPI Comment/Other: 34-year-old female PMH significant for iron deficiency anemia and methamphetamine abuse presented to the hospital initially on 12/23/2024 for fevers and feeling generally ill. She received IV fluid hydration and was discharged home at that time. She returned to the ER today for same and was discharged with plans to go to inpatient drug rehab. In the interim, blood cultures resulted positive in both bottles for Enterococcus, so she was instructed to return to the ER. Lab work was overall unremarkable including a WBC of 9.1 but did include a UDS positive for methamphetamine, which it appears she has been using since at least 2019. Hospitalist was contacted for admission for gram- positive bacteremia Meds/All Home Medications Ambulatory Orders Medication Instructions Recorded Confirmed ciprofloxacin HCl 500 mg tablet 1 tab PO BID 10 days #20 tabs 06/18/24 ferrous sulfate 325 mg (65 mg 325 mg PO DAILY #30 tabs 12/23/24 iron) tablet (Iron (ferrous sulfate)) Allergies Allergies Allergy/AdvReac Type Severity Reaction Status Date / Time latex Allergy Rash Verified 12/24/24 19:16 Penicillins Allergy Unknown Verified 12/24/24 19:16 PFSH Active Problems All Active Problems (Updated 12/24/24 @ 20:55 by Micah Delacruz DNP) Bacteremia due to Enterococcus (Acute) Anemia (Acute) Dehydration (Acute) Medical History Medical History (Updated 12/24/24 @ 20:55 by Micah Delacruz DNP) Methamphetamine use No pertinent past medical history Surgical History Surgical History (Updated 12/24/24 @ 19:38 by Ana Knox RN) No pertinent past surgical history Social History Social History Smoking Status: Current every day smoker Number of Years Smoked: 10 How many cigarettes a day do you smoke? (20 cigarettes=1 Pk): 5 Patient requests smoking cessation consult: Yes Initiate information on smoking cessation: Yes Living arrangement: At home Relationship: Do you feel safe in your home environment?: Yes Suffered physical, verbal, emotional, or financial abuse?: No History of Abuse: No POLST Patient has POLST: No Review of Systems Status of ROS: 10 or more systems reviewed and unremarkable except as noted in history and below Constitutional Reports: Fever and Chills Ears, nose, mouth, and throat Denies: Neck pain Cardiovascular Reports: palpitations; Denies: Irregular heart rate, chest pain or shortness of breath with exertion Respiratory Denies: Shortness of breath or Cough Gastrointestinal Denies: Abdominal pain or Abdominal distention Genitourinary Denies: Painful urination or Urinary frequency Musculoskeletal Denies: Back pain or Neck pain Integumentary/Breast Denies: Rash Neurological Reports: General weakness Exam Exam Disheveled 34-year-old female Constitutional normal general appearance and no apparent distress HENMT normocephalic and head/scalp atraumatic Eyes PERRL Neck/C-Spine visual inspection normal Lymph no lymphadenopathy noted Chest inspection of chest normal Respiratory breath sounds equal bilaterally and normal respiratory effort Cardiovascular normal heart rate noted and regular rhythm noted Gastrointestinal abdomen normal to inspection Neurology GCS 15 Psychiatry oriented x3 Skin skin color normal Track colon Conclusion/Plan Problem List (1) Bacteremia due to Enterococcus: Plan: Patient has a listed penicillin allergy, so I am ordering vancomycin dosed by pharmacy. We will need to monitor kidney function and Vanco troughs to avoid toxicity I am ordering a echocardiogram to check for vegetation on her heart valves She will need a week of IV antibiotics, she will not be eligible for home infusions given her history of IV drug use Consider repeat blood cultures and a few days Trend WBC on CBC daily Elevated heart rate, but no active fevers or tachypnea. No elevation in WBC. (2) Anemia: Plan: Reordering home dose ferrous sulfate 325 mg p.o. Qualifiers: Anemia type: iron deficiency Iron deficiency anemia type: unspecified iron deficiency Qualified Code(s): D50.9 - Iron deficiency anemia, unspecified (3) Methamphetamine use: Plan: I have ordered mirtazapine to help with her withdrawal symptoms She was initially planning to go to [facility] for meth rehab Social work consult Plan Admit inpatient med floor Full code Her sister is her surrogate decision-maker No PCP Lab Results Lab results reviewed: Yes 12/24/24 19:26 12/24/24 19:26 Core Measures DVT/VTE - Prophylaxis VTE/DVT Prophylaxis med ordered at admit?: Yes
[2024-12-24] MEDS ORDERED: ONDANSETRON 4 MG/2 ML VIAL IVP PRN (21:18)
[2024-12-24] MEDS ORDERED: SODIUM CHLORIDE FLUSH 0.9% 10 ML SYRINGE IVP PRN (21:18)
[2024-12-24] MEDS ORDERED: ONDANSETRON ODT 4 MG TABLET TL PRN (21:18)
[2024-12-24] MEDS ORDERED: ACETAMINOPHEN 325 MG TABLET PO PRN (21:18)
[2024-12-24] MEDS: MIRTAZAPINE 15 MG TABLET PO SCH (21:42)
[2024-12-24] MEDS: SODIUM CHLORIDE FLUSH 0.9% 10 ML SYRINGE IVP SCH (23:54)
[2024-12-25 05:28] LABS: BASOPHILS # (AUTO) 0.1 10^3/uL (0.0-0.1); BASOPHILS % (AUTO) 0.6 %; EOSINOPHILS # (AUTO) 0.1 10^3/uL (0.0-0.7); EOSINOPHILS % (AUTO) 1.1 %; HCT - HEMATOCRIT 26.3 % (37.0-47.0); HGB - HEMOGLOBIN 8.2 g/dL (12.0-16.0); LYMPHOCYTES # (AUTO) 1.7 10^3/uL (1.5-3.5); MEAN CORPUSCULAR HEMOGLOBIN 25.2 pg (27.0-31.0); MEAN CORPUSCULAR HGB CONC 31.2 g/dL (32.0-36.0); MEAN CORPUSCULAR VOLUME 80.7 fL (81.0-99.0); MEAN PLATELET VOLUME 8.5 fL (7.9-10.8); MONOCYTES # (AUTO) 0.5 10^3/uL (0.0-1.0); MONOCYTES % (AUTO) 6.1 %; NEUTROPHILS # (AUTO) 5.8 10^3/uL (1.5-6.6); NEUTROPHILS % (AUTO) 70.8 %; PLT - PLATELET COUNT 342 10^3/uL (130-450); RED BLOOD COUNT 3.26 10^6/uL (4.20-5.40); RED CELL DISTRIBUTION WIDTH 15.1 % (12.0-15.0); WHITE BLOOD COUNT 8.2 x10^3/uL (4.8-10.8)
[2024-12-25 05:39] LABS: CALCIUM 7.9 mg/dL (8.5-10.3); CREATININE 0.8 mg/dL (0.6-1.3); POTASSIUM 3.5 mmol/L (3.5-4.5)
[2024-12-25] MEDS: VANCOMYCIN INJ 1 GM in SODIUM CHLORIDE 0.9% 250 ML IV SCH ×2 (08:04→16:30)
[2024-12-25] MEDS: FERROUS SULFATE 325 MG TABLET PO SCH (09:46)
[2024-12-25] MEDS ORDERED: diphenhydrAMINE INJ 50 MG/ML VIAL IVP PRN (10:03)
[2024-12-25] MEDS ORDERED: LORazepam 0.5 MG TABLET PO PRN (10:03)
--- NOTE | 2024-12-25 11:57 | PHARMACY PROGRESS NOTE ---
Best Possible Medication History Admit Date and Time: 12/24/242031 Home Medications Medication Instructions Recorded Confirmed Type No Known Home Medications 12/25/24 12/25/24 History Processed by: Pharmacy (Medication Reconciliation completed by Nursery AttendantMinoo) Medications reviewed in ED?: No Medication History completed: Yes Patient Interview: Completed Secondary Source(s): Insurance records [facility] Statement: As the person ultimately responsible for medication therapy, providers are able to order a medication from an existing home medication list in [facility] via the "Reconcile Routine" prior to Confirmation of that medication by support group manager. Such practice is discouraged except when the physician, in their clinical judgment, deems that a medical need exists for a medication without regard to previous use.
--- NOTE | 2024-12-25 12:08 | PROVIDER PROGRESS NOTE ---
Subjective Prog Note Date Prog Note Date: 12/25/24 Subjective Pt reports feeling: No change Current Medications Current Medications Current Medications: Current Medications Generic Name Dose Route Start Last Admin Trade Name Latrice PRN Reason Stop Dose Admin Acetaminophen 650 mg 12/24/24 21:18 Acetaminophen 325 Mg Tablet PO Q4HR PRN Pain 1 to 4, or Fever Diphenhydramine HCl 25 mg 12/25/24 10:03 Diphenhydramine Inj 50 Mg/Ml Vial IVP Q6H PRN Allergy Symptoms Ferrous Sulfate 325 mg 12/25/24 09:00 12/25/24 09:46 Ferrous Sulfate 325 Mg Tablet PO 325 mg DAILY RUMA Administration Vancomycin HCl 1 gm/ Sodium 250 mls @ 167 mls/hr 12/25/24 16:00 Chloride IV Q8H RUMA Lorazepam 0.5 mg 12/25/24 10:03 Lorazepam 0.5 Mg Tablet PO Q6H PRN Anxiety Mirtazapine 15 mg 12/24/24 21:18 12/24/24 21:42 Mirtazapine 15 Mg Tablet PO 15 mg QPM RUMA Administration Ondansetron HCl 4 mg 12/24/24 21:18 Ondansetron Odt 4 Mg Tablet TL Q6HR PRN Nausea / Vomiting Ondansetron HCl 4 mg 12/24/24 21:18 Ondansetron 4 Mg/2 Ml Vial IVP Q6HR PRN Nausea / Vomiting Sodium Chloride 10 ml 12/24/24 21:18 Sodium Chloride Flush 0.9% 10 Ml Syringe IVP PRN PRN NEEDED PER PROVIDER ORDERS Sodium Chloride 10 ml 12/25/24 01:00 12/25/24 08:04 Sodium Chloride Flush 0.9% 10 Ml Syringe IVP 10 ml 0100,0900,1700 RUMA Administration Objective Vital Signs/Intake & Output Reviewed Vital Signs: Yes Vital Signs: Vital Signs x48h Temp Pulse Resp BP Pulse Ox 12/25/24 11:52 36.3 C L 98 20 111/68 98 12/25/24 08:38 36.7 C 113 H 20 100/63 96 12/25/24 04:15 37.0 C 123 H 16 101/63 96 Intake & Output: Intake & Output 12/22/24 12/23/24 12/24/24 12/25/24 23:59 23:59 23:59 23:59 Intake Total 3021 / 3020 490 / 490 Balance 3020 490 / 490 Weight (kg) 81.478 kg Objective General Appearance: positive No acute distress and Alert Eyes Bilateral: positive Normal inspection ENT: positive ENT inspection nml Neck: positive Nml inspection Respiratory: positive Chest non-tender and No respiratory distress Cardiovascular: positive Regular rate & rhythm Abdomen: positive Non-tender Skin: positive Color nml Extremities: positive Non-tender Neurologic/Psychiatric: positive Oriented x3 Lab Results 12/25/24 04:54 12/25/24 04:54 Other Labs: Lab Results x24hrs 12/25/24 12/24/24 Range/Units 04:54 19:26 WBC 8.2 9.1 (4.8-10.8) x10^3/uL RBC 3.26 L 3.82 L (4.20-5.40) 10^6/uL Hgb 8.2 L 9.3 L (12.0-16.0) g/dL Hct 26.3 L 30.8 L (37.0-47.0) % MCV 80.7 L 80.6 L (81.0-99.0) fL MCH 25.2 L 24.3 L (27.0-31.0) pg MCHC 31.2 L 30.2 L (32.0-36.0) g/dL RDW 15.1 H 15.1 H (12.0-15.0) % Plt Count 342 375 (130-450) 10^3/uL MPV 8.5 8.1 (7.9-10.8) fL Neut # (Auto) 5.8 6.6 (1.5-6.6) 10^3/uL Lymph # (Auto) 1.7 1.8 (1.5-3.5) 10^3/uL [place] # (Auto) 0.5 0.6 (0.0-1.0) 10^3/uL Eos # (Auto) 0.1 0.1 (0.0-0.7) 10^3/uL Baso # (Auto) 0.1 0.1 (0.0-0.1) 10^3/uL Absolute Nucleated RBC 0.00 0.00 x10^3/uL Nucleated RBC % 0.0 0.0 /100WBC Sodium 134 L 132 L (135-145) mmol/L Potassium 3.5 3.8 (3.5-4.5) mmol/L Chloride 104 100 L (101-111) mmol/L Carbon Dioxide 22 25 (21-32) mmol/L Anion Gap 8.0 7.0 (6-13) BUN 10 14 (6-20) mg/dL Creatinine 0.8 0.8 (0.6-1.3) mg/dL Estimated GFR (MDRD) 82 L 82 L (>89) Glucose 169 H 101 (74-104) mg/dL Lactic Acid 0.4 L (0.5-2.2) mmol/L Calcium 7.9 L 8.9 (8.5-10.3) mg/dL Total Bilirubin 0.3 (0.2-1.0) mg/dL AST 14 (10-42) IU/L ALT 26 (10-60) IU/L Alkaline Phosphatase 120 (42-121) IU/L Total Protein 7.7 (6.4-8.9) g/dL Albumin 3.4 (3.2-5.5) g/dL Globulin 4.3 H (2.1-4.2) g/dL Albumin/Globulin Ratio 0.8 L (1.0-2.2) Assessment/Plan Problem List (1) Bacteremia due to Enterococcus: Impression: History of IVDA, this is likely the source I am continuing vancomycin because of her Penicillin allergy and will need to frequently assess kidney function and vancomycin troughs to monitor for toxicity BMP daily Echocardiogram has been ordered Will need a total course of 5 to 7 days of IV antibiotics if echocardiogram is negative and repeat blood cultures after 48 hours are negative (2) Anemia: Impression: Continue home dose iron supplementation While monitoring daily CBC Qualifiers: Anemia type: iron deficiency Iron deficiency anemia type: unspecified iron deficiency Qualified Code(s): D50.9 - Iron deficiency anemia, unspecified (3) Methamphetamine use: Impression: I am continuing the mirtazapine I ordered last night, while watching for side effects from the drug and from amphetamine withdrawal Social work has been consulted
[2024-12-26 05:01] LABS: BASOPHILS # (AUTO) 0.1 10^3/uL (0.0-0.1); BASOPHILS % (AUTO) 0.7 %; EOSINOPHILS # (AUTO) 0.2 10^3/uL (0.0-0.7); HCT - HEMATOCRIT 29.7 % (37.0-47.0); HGB - HEMOGLOBIN 9.4 g/dL (12.0-16.0); LYMPHOCYTES # (AUTO) 2.3 10^3/uL (1.5-3.5); LYMPHOCYTES % (AUTO) 23.2 %; MEAN CORPUSCULAR HEMOGLOBIN 25.5 pg (27.0-31.0); MEAN CORPUSCULAR HGB CONC 31.6 g/dL (32.0-36.0); MEAN CORPUSCULAR VOLUME 80.5 fL (81.0-99.0); MEAN PLATELET VOLUME 8.5 fL (7.9-10.8); MONOCYTES # (AUTO) 0.9 10^3/uL (0.0-1.0); MONOCYTES % (AUTO) 8.5 %; NEUTROPHILS # (AUTO) 6.5 10^3/uL (1.5-6.6); NEUTROPHILS % (AUTO) 64.9 %; PLT - PLATELET COUNT 344 10^3/uL (130-450); RED BLOOD COUNT 3.69 10^6/uL (4.20-5.40); RED CELL DISTRIBUTION WIDTH 15.5 % (12.0-15.0)
[2024-12-26 05:14] LABS: CALCIUM 8.4 mg/dL (8.5-10.3); CREATININE 0.7 mg/dL (0.6-1.3); POTASSIUM 3.9 mmol/L (3.5-4.5)
[2024-12-26 08:04] VITALS: BP 118/75; TEMP 97.7; O2SAT 98
[2024-12-26] MEDS: polyethylene glycoL 3350 17 GM PACKET PO SCH (08:31)
[2024-12-26] MEDS: ENOXAPARIN 40 MG/0.4 ML SYRINGE SUBQ SCH (08:31)
[2024-12-26] MEDS: DOCUSATE SODIUM 250 MG CAPSULE PO SCH (08:31)
[2024-12-26] MEDS: NICOTINE 21 MG PATCH TOP SCH (10:02)
[2024-12-26 11:38] LABS: % IRON SATURATION 10 % (20-50); IRON 24 ug/dL (50-212); TOTAL IRON BINDING CAPACITY 231 ug/dL (250-450); TRANSFERRIN 165 mg/dL (203-362)
--- NOTE | 2024-12-26 12:25 | Discharge Summary ---
"Discharge Summary Admit Date: 12/24/24 Discharge Date: 12/26/24 Discharging Provider: Lynne Camara PA-C Primary Care Provider: none Code Status: Attempt Resuscitation DIAGNOSES Discharge Diagnoses with Status of Each Condition: Enterococcus bacteremia, recommend treatment with IV antibiotics for 5 to 7 days, patient left AMA Anemia, chronic Methamphetamine use, chronic, patient refuses further treatment. HPI History of Present Illness: 34-year-old female H significant for iron deficiency anemia and methamphetamine abuse presented to the hospital initially on 12/23/2024 for fevers and feeling generally ill. She received IV fluid hydration and was discharged home at that time. She returned to the ER today for same and was discharged with plans to go to inpatient drug rehab. In the interim, blood cultures resulted positive in both bottles for Enterococcus, so she was instructed to return to the ER. Lab work was overall unremarkable including a WBC of 9.1 but did include a UDS positive for methamphetamine, which it appears she has been using since at least 2018. Hospitalist was contacted for admission for gram- positive bacteremia CONSULTS | PROCEDURES Procedures: Echocardiogram dated 12/26/2024: Resulted 12/27/2024. Left ventricle size is normal, left ventricle wall thickness is normal LVEF 60 to 65% Right ventricle normal in size and function Mild mitral regurgitation. A small mass noted in the anterior mitral valve with more suggestive for a ruptured chordae however, vegetation cannot be excluded. Consider [place]. HOSPITAL COURSE Hospital Course: This is a 34-year-old female with a past history of IV methamphetamine use who presented to the emergency department feeling ill on 23 December. Blood cultures were drawn at that time, she received IV hydration was discharged home. Then returned the same day and was discharged with plans to go to inpatient drug rehab, however blood cultures were returned positive for Enterococcus. These blood cultures were drawn on 12/23/2024. She was called to return to the ED due to the positive blood cultures and was subsequently admitted for this bacteremia. She was started on vancomycin. Repeat blood cultures were drawn upon her return to the emergency department. She stayed 2 nights, however, on the morning of hospital day 3, she decided to leave AMA. She did have her echocardiogram completed. Echo was not read prior to her departing the hospital.She is absolutely insistent upon leaving the hospital. She does not want to attempt treatment of her withdrawal symptoms. She states she is going to leave here and go to another hospital. ALLERGIES Allergies Allergy/AdvReac Type Severity Reaction Status Date / Time latex Allergy Rash Verified 12/24/24 19:16 Penicillins Allergy Unknown Verified 12/24/24 19:16 MEDICATIONS Ambulatory Orders Medication Instructions Recorded Confirmed No Known Home Medications 12/25/24 12/25/24 PHYSICAL EXAM AT DISCHARGE General Appearance: positive Alert and Anxious Eyes Bilateral: positive Normal inspection ENT: positive ENT inspection nml Neck: positive Nml inspection Respiratory: positive No respiratory distress Cardiovascular: positive Tachycardia Abdomen: positive No distention Skin: positive Color nml and Diaphoresis (diffuse) Extremities: positive No pedal edema; negative Joint swelling Neurologic/Psychiatric: positive Oriented x3 LABS 12/26/24 04:44 12/26/24 04:44 SEPSIS Confirmed Source and Organism (if known) of Sepsis: Enterococcus faecalis likely due to injection drug use. Sepsis Associated Organ Dysfunction: Tachycardia Sepsis Criteria: Recorded Heart Rate greater than 90 bpm TIME SPENT Time Spent in Discharge (Minutes): 28 Discharge Plan Discharge Patient Disposition: Against Medical Advice Condition: Serious Prescriptions: No Action No Known Home Medications Print Language: Nigerien Stand Alone Forms: PCP List"
[2024-12-26] MEDS ORDERED: DAPTOmycin 500 MG VIAL IVP SCH (16:00)
[2024-12-27] MEDS ORDERED: MULTIVITAMIN W/MINERALS TABLET PO SCH (08:00)
== END 2024-12-26 13:20 | disposition left against medical advice (07) | DRG 872 ==
LOC: ED 19:11 → MS2 20:32
PROVIDERS: ADMIT Nurse Practitioner Acute Care; ATTEND Nurse Practitioner Acute Care
DX: F17.210 Nicotine dependence, cigarettes, uncomplicated; E87.1 Hypo-osmolality and hyponatremia; I34.0 Nonrheumatic mitral (valve) insufficiency; Z53.20 Procedure and treatment not carried out because of patient's decision for unspecified reasons; A41.81 Sepsis due to Enterococcus; Z88.0 Allergy status to penicillin; D50.9 Iron deficiency anemia, unspecified; F15.13 Other stimulant abuse with withdrawal